=== PATIENT | male | born 1950 | race Caucasian/White ===

== ENCOUNTER 2018-01-10 13:18 | Emergency (ER) | payer OTHER, MEDICARE ==
[~2018-01-10] VITALS: Ht 188 cm; Wt 125.6 kg
[~2018-01-10 13:18] MED LIST: ALBU6.7H INH; LOSA1TAB39 PO; METF10004 PO; OMEP20TA23 PO
[2018-01-10 13:56] LABS: BASOPHILS # (AUTO) 0.1 X10'3 (0-0.2); BASOPHILS % (AUTO) 1.1 % (0-1); EOSINOPHILS # (AUTO) 0.5 X10'3 (0-0.9); EOSINOPHILS % (AUTO) 5.5 % (0-6); HEMATOCRIT 46.1 % (42.0-52.0); HEMOGLOBIN 15.4 g/dl (14.0-17.9); LYMPHOCYTES # (AUTO) 1.4 X10'3 (1.1-4.8); LYMPHOCYTES % (AUTO) 16.9 % (21-51); MEAN CORPUSCULAR HEMOGLOBIN 30.8 PG (27.0-31.0); MEAN CORPUSCULAR HGB CONC 33.4 % (33.0-36.5); MEAN CORPUSCULAR VOLUME 92.2 FL (78-98); MEAN PLATELET VOLUME 7.6 FL (7.4-10.4); MONOCYTES # (AUTO) 0.7 X10'3 (0-0.9); NEUTROPHILS # (AUTO) 5.6 X10'3 (1.8-7.7); NEUTROPHILS % (AUTO) 68.5 % (42-75); PLATELET COUNT 234 X10'3 (140-440); RED CELL DISTRIBUTION WIDTH 13.7 % (11.5-14.5); WHITE BLOOD COUNT 8.2 X10'3 (4.5-11.0)
[2018-01-10 14:05] LABS: PARTIAL THROMBOPLASTIN TIME 30 SECONDS (22-32); PROTHROMBIN TIME 9.9 SECONDS (9.0-12.0)
[2018-01-10 14:12] LABS: ALANINE AMINOTRANSFERASE 31 U/L (12-78); ALBUMIN 3.7 G/DL (3.4-5.0); ALBUMIN/GLOBULIN RATIO 0.9 (1.1-1.5); ALKALINE PHOSPHATASE 69 IU/L (46-116); ANION GAP 9 (8-16); ASPARTATE AMINO TRANSFERASE 16 U/L (10-37); BILIRUBIN,TOTAL 0.4 MG/DL (0.1-1.0); BLOOD UREA NITROGEN 24 MG/DL (7-18); BUN/CREATININE RATIO 21.2 (5.4-32.0); CALCIUM 9.6 MG/DL (8.5-10.1); CHLORIDE 104 MMOL/L (99-107); CREATININE 1.13 MG/DL (0.60-1.10); GLUCOSE 113 MG/DL (70-104); POTASSIUM 3.9 MMOL/L (3.5-5.1); SODIUM 140 MMOL/L (135-145); TOTAL CARBON DIOXIDE 27.2 MMOL/L (24-32); TOTAL PROTEIN 7.7 G/DL (6.4-8.2); eGFR 65 ML/MIN
[2018-01-10 14:20] LABS: MAGNESIUM 1.7 MG/DL (1.5-2.4)
[2018-01-10] MEDS ORDERED: amLODIPine 5mg tablet PO ONE (15:15)
[2018-01-10] MEDS ORDERED: AMLO10TA4 PO (15:15)
[2018-01-10] MEDS ORDERED: nitroGLYCERIN 0.2mg/hour patch TD ONE (15:15)
[2018-01-10] MEDS ORDERED: normal saline 1000ML IV soln IVB ONE (15:30)
[2018-01-10] MEDS ORDERED: iohexol 300mg/ml 100ml inj. ONE (15:31)
[2018-01-10 17:25] VITALS: BP 184/80
[2018-01-11] MEDS ORDERED: MESSAGE TO NURSING PO NR (15:50)
== END 2018-01-10 17:28 | disposition home or self-care (01) ==
LOC: ER 13:19
DX: I16.0 Hypertensive urgency (principal); R91.1 Solitary pulmonary nodule; I11.0 Hypertensive heart disease with heart failure; I50.9 Heart failure, unspecified; J45.909 Unspecified asthma, uncomplicated; E11.9 Type 2 diabetes mellitus without complications; Z87.891 Personal history of nicotine dependence; Z56.0 Unemployment, unspecified; Z79.899 Other long term (current) drug therapy
CPT/HCPCS: 36415; 71045; 71260; 80053; 83735; 83880; 84484; 85025; 85610; 85730; 93005; 99285; J7030; Q9967

== ENCOUNTER 2018-04-12 16:11 | Inpatient (IN) | payer OTHER, MEDICARE ==
[~2018-04-12] VITALS: Ht 188 cm; Wt 133.0 kg
[~2018-04-12 16:11] MED LIST changes: +AMLO10TA4 PO; +METF-438 PO; -METF10004 PO
[2018-04-12] MEDS ORDERED: normal saline 1000ML IV soln IVB ONE (16:20)
[2018-04-12] MEDS ORDERED: albuterol 2.5 MG/3 ML nebule CONTNEB PRN (16:20)
[2018-04-12] MEDS ORDERED: methylPREDNISolone sod succ 125mg/2ml vial IV ONE (16:20)
[2018-04-12] MEDS ORDERED: cloNIDine 0.1 mg tablet PO ONE (16:25)
[2018-04-12 17:29] LABS: BASOPHILS % (AUTO) 0.3 % (0-1); EOSINOPHILS # (AUTO) 0.7 X10'3 (0-0.9); HEMATOCRIT 47.4 % (42.0-52.0); HEMOGLOBIN 15.7 g/dl (14.0-17.9); LYMPHOCYTES % (AUTO) 18.9 % (21-51); MEAN CORPUSCULAR HEMOGLOBIN 30.2 PG (27.0-31.0); MEAN CORPUSCULAR HGB CONC 33.1 % (33.0-36.5); MEAN CORPUSCULAR VOLUME 91.4 FL (78-98); MEAN PLATELET VOLUME 8.4 FL (7.4-10.4); MONOCYTES # (AUTO) 1.1 X10'3 (0-0.9); MONOCYTES % (AUTO) 10.4 % (2-12); NEUTROPHILS # (AUTO) 6.8 X10'3 (1.8-7.7); NEUTROPHILS % (AUTO) 63.4 % (42-75); PLATELET COUNT 234 X10'3 (140-440); RED BLOOD COUNT 5.18 X10'6 (4.70-6.10); RED CELL DISTRIBUTION WIDTH 13.5 % (11.5-14.5); WHITE BLOOD COUNT 10.6 X10'3 (4.5-11.0)
[2018-04-12 17:31] LABS: ALANINE AMINOTRANSFERASE 30 U/L (12-78); ALBUMIN 3.8 G/DL (3.4-5.0); ALBUMIN/GLOBULIN RATIO 0.9 (1.1-1.5); ALKALINE PHOSPHATASE 75 IU/L (46-116); ANION GAP 8 (8-16); ASPARTATE AMINO TRANSFERASE 23 U/L (10-37); BILIRUBIN,TOTAL 0.4 MG/DL (0.1-1.0); BLOOD UREA NITROGEN 26 MG/DL (7-18); BUN/CREATININE RATIO 22.6 (5.4-32.0); CALCIUM 9.1 MG/DL (8.5-10.1); CHLORIDE 100 MMOL/L (99-107); CREATININE 1.15 MG/DL (0.60-1.10); GLUCOSE 110 MG/DL (70-104); POTASSIUM 3.8 MMOL/L (3.5-5.1); SODIUM 138 MMOL/L (135-145); TOTAL CARBON DIOXIDE 30.3 MMOL/L (24-32); TOTAL PROTEIN 7.9 G/DL (6.4-8.2); eGFR 64 ML/MIN
[2018-04-12] MEDS ORDERED: LABE100T5 PO (20:05)
[2018-04-12] MEDS ORDERED: NIFE-2 PO (20:05)
[2018-04-12] MEDS ORDERED: MONT10TA21 PO (20:05)
[2018-04-12] MEDS ORDERED: ALIS1TAB3 PO (20:05)
[2018-04-12] MEDS ORDERED: IPRA4AER IH (20:05)
[2018-04-12] MEDS ORDERED: TIOT18CA3 INH (20:05)
[2018-04-12] MEDS ORDERED: acetaminophen 325mg tablet PO PRN (20:50)
[2018-04-12] MEDS ORDERED: ondansetron/PF 4mg/2ml inj IV PRN (20:50)
[2018-04-12] MEDS ORDERED: magnesium hydroxide 30ml (MOM) UD suspension PO PRN (20:50)
[2018-04-12] MEDS ORDERED: mag hydrox/Alum hydrox/simeth 30ml oral suspension PO PRN (20:50)
[2018-04-12] MEDS ORDERED: labetalol 100mg tablet PO ONE (21:10)
[2018-04-12 21:15] LABS: D-DIMER 0.46 MG/L FEU (0-0.50)
[2018-04-12 22:00] VITALS: BP 184/77
[2018-04-12] MEDS: NIFEdipine XL 30mg tablet PO SCH (22:41)
[2018-04-12 23:00] VITALS: BP 138/63
[2018-04-12] MEDS ORDERED: glucagon, human recombinant 1mg kit SUBCUT PRN (23:15)
[2018-04-12] MEDS ORDERED: MESSAGE TO PHARMACY PO ONE (23:15)
[2018-04-12] MEDS ORDERED: dextrose 50%-water 50ml dispensing syringe IV PRN ×2 (23:15)
[2018-04-12] MEDS ORDERED: dextrose ORAL solution 15 GM/59 ML bottle PO PRN ×2 (23:15)
[2018-04-12 23:39] LABS: HEMOGLOBIN A1C 6.3 % (4.5-6.2)
[2018-04-12] MEDS: albuterol 2.5 MG/3 ML nebule NEB PRN (23:50)
[2018-04-13] MEDS: methylPREDNISolone sod succ/PF 40mg inj. IV SCH ×4 (01:21→19:34)
[2018-04-13 04:00] VITALS: BP 135/60
[2018-04-13 05:57] LABS: BASOPHILS % (AUTO) 0.2 % (0-1); EOSINOPHILS % (AUTO) 0 % (0-6); HEMATOCRIT 44.3 % (42.0-52.0); HEMOGLOBIN 14.9 g/dl (14.0-17.9); LYMPHOCYTES # (AUTO) 0.7 X10'3 (1.1-4.8); MEAN CORPUSCULAR HEMOGLOBIN 30.5 PG (27.0-31.0); MEAN CORPUSCULAR HGB CONC 33.8 % (33.0-36.5); MEAN CORPUSCULAR VOLUME 90.4 FL (78-98); MEAN PLATELET VOLUME 8.4 FL (7.4-10.4); MONOCYTES # (AUTO) 0.2 X10'3 (0-0.9); MONOCYTES % (AUTO) 2.4 % (2-12); NEUTROPHILS # (AUTO) 7.4 X10'3 (1.8-7.7); NEUTROPHILS % (AUTO) 89.4 % (42-75); PLATELET COUNT 237 X10'3 (140-440); RED CELL DISTRIBUTION WIDTH 13.6 % (11.5-14.5); WHITE BLOOD COUNT 8.3 X10'3 (4.5-11.0)
[2018-04-13 06:15] LABS: ALANINE AMINOTRANSFERASE 28 U/L (12-78); ALBUMIN 3.4 G/DL (3.4-5.0); ALBUMIN/GLOBULIN RATIO 0.9 (1.1-1.5); ALKALINE PHOSPHATASE 67 IU/L (46-116); ANION GAP 7 (8-16); ASPARTATE AMINO TRANSFERASE 18 U/L (10-37); BILIRUBIN,TOTAL 0.4 MG/DL (0.1-1.0); BLOOD UREA NITROGEN 25 MG/DL (7-18); BUN/CREATININE RATIO 22.7 (5.4-32.0); CALCIUM 8.7 MG/DL (8.5-10.1); CHLORIDE 101 MMOL/L (99-107); GLUCOSE 191 MG/DL (70-104); POTASSIUM 4.4 MMOL/L (3.5-5.1); SODIUM 138 MMOL/L (135-145); TOTAL CARBON DIOXIDE 30.1 MMOL/L (24-32); TOTAL PROTEIN 7.2 G/DL (6.4-8.2); eGFR 67 ML/MIN
[2018-04-13] MEDS: ipratropium/albuterol 3ml nebule IH SCH ×4 (07:11→19:38)
[2018-04-13 08:00] VITALS: BP 167/82
[2018-04-13] MEDS ORDERED: HYDROchlorothiazide 12.5mg capsule PO SCH (08:00)
[2018-04-13] MEDS ORDERED: non-formulary drug (Tiotropium Bromide (Spiriva) 1 PUFF) INH SCH (08:00)
[2018-04-13] MEDS: insulin Lispro (HumaLOG) vial - multi-dose SQ SCH ×3 (08:01→18:54)
[2018-04-13] MEDS: NIFEdipine XL 30mg tablet PO SCH ×3 (08:05→21:16)
[2018-04-13] MEDS: heparin, porcine 5000 units/ml vial SQ SCH ×2 (08:05→19:35)
[2018-04-13] MEDS: montelukast 10mg tablet PO SCH (08:06)
[2018-04-13] MEDS: labetalol 100mg tablet PO SCH ×2 (08:06→19:33)
[2018-04-13 11:00] VITALS: BP 149/73
[2018-04-13] MEDS: HYDROCHLOROTHIAZIDE PO SCH (11:25)
[2018-04-13] MEDS: ALISKIREN PO SCH (11:25)
[2018-04-13] MEDS ORDERED: DOXYCYCLINE 100MG CAPSULE PO STA (12:27)
[2018-04-13] MEDS: DOXYCYCLINE 100MG CAPSULE PO SCH (14:26)
[2018-04-13 19:00] VITALS: BP 126/46
[2018-04-13 21:10] VITALS: BP 152/64
[2018-04-13 23:00] VITALS: BP 123/46
[2018-04-14] MEDS: methylPREDNISolone sod succ/PF 40mg inj. IV SCH ×4 (03:19→20:08)
[2018-04-14] MEDS: albuterol 2.5 MG/3 ML nebule NEB PRN (03:27)
[2018-04-14 06:00] LABS: BASOPHILS % (AUTO) 0.2 % (0-1); EOSINOPHILS % (AUTO) 0 % (0-6); HEMATOCRIT 44.2 % (42.0-52.0); HEMOGLOBIN 14.5 g/dl (14.0-17.9); LYMPHOCYTES # (AUTO) 0.6 X10'3 (1.1-4.8); LYMPHOCYTES % (AUTO) 5.2 % (21-51); MEAN CORPUSCULAR HEMOGLOBIN 29.9 PG (27.0-31.0); MEAN CORPUSCULAR HGB CONC 32.9 % (33.0-36.5); MONOCYTES # (AUTO) 0.7 X10'3 (0-0.9); MONOCYTES % (AUTO) 5.9 % (2-12); NEUTROPHILS # (AUTO) 10.4 X10'3 (1.8-7.7); NEUTROPHILS % (AUTO) 88.7 % (42-75); PLATELET COUNT 242 X10'3 (140-440); RED BLOOD COUNT 4.86 X10'6 (4.70-6.10); RED CELL DISTRIBUTION WIDTH 13.5 % (11.5-14.5); WHITE BLOOD COUNT 11.7 X10'3 (4.5-11.0)
[2018-04-14 06:28] LABS: ALANINE AMINOTRANSFERASE 23 U/L (12-78); ALBUMIN 3.5 G/DL (3.4-5.0); ALBUMIN/GLOBULIN RATIO 0.9 (1.1-1.5); ALKALINE PHOSPHATASE 69 IU/L (46-116); ANION GAP 10 (8-16); ASPARTATE AMINO TRANSFERASE 22 U/L (10-37); BILIRUBIN,TOTAL 0.3 MG/DL (0.1-1.0); BLOOD UREA NITROGEN 32 MG/DL (7-18); BUN/CREATININE RATIO 26.2 (5.4-32.0); CALCIUM 8.7 MG/DL (8.5-10.1); CHLORIDE 100 MMOL/L (99-107); CREATININE 1.22 MG/DL (0.60-1.10); GLUCOSE 180 MG/DL (70-104); POTASSIUM 4.2 MMOL/L (3.5-5.1); SODIUM 137 MMOL/L (135-145); TOTAL CARBON DIOXIDE 27.3 MMOL/L (24-32); TOTAL PROTEIN 7.4 G/DL (6.4-8.2); eGFR 59 ML/MIN
[2018-04-14 07:00] VITALS: BP 168/74
[2018-04-14] MEDS: ipratropium/albuterol 3ml nebule IH SCH ×4 (08:03→20:25)
[2018-04-14] MEDS: DOXYCYCLINE 100MG CAPSULE PO SCH ×2 (09:02→17:02)
[2018-04-14] MEDS: montelukast 10mg tablet PO SCH (09:03)
[2018-04-14] MEDS: labetalol 100mg tablet PO SCH ×2 (09:03→20:07)
[2018-04-14] MEDS: heparin, porcine 5000 units/ml vial SQ SCH ×2 (09:03→20:07)
[2018-04-14] MEDS: NIFEdipine XL 30mg tablet PO SCH ×3 (09:03→21:19)
[2018-04-14] MEDS: insulin Lispro (HumaLOG) vial - multi-dose SQ SCH ×3 (09:10→18:44)
[2018-04-14] MEDS: ALISKIREN PO SCH (09:17)
[2018-04-14] MEDS: HYDROCHLOROTHIAZIDE PO SCH (09:17)
[2018-04-14 11:00] VITALS: BP 168/77
[2018-04-14 20:00] VITALS: BP 120/72
[2018-04-14] MEDS: lactobacillus rhamnosus 10,000 MMU CELLS/CAPSULE PO SCH (20:08)
[2018-04-14 21:17] VITALS: BP 164/72
[2018-04-15] VITALS: BP 148/75
[2018-04-15] MEDS: methylPREDNISolone sod succ/PF 40mg inj. IV SCH ×3 (01:31→13:25)
[2018-04-15] MEDS: albuterol 2.5 MG/3 ML nebule NEB PRN (03:37)
[2018-04-15 06:23] LABS: BASOPHILS % (AUTO) 0.2 % (0-1); EOSINOPHILS % (AUTO) 0 % (0-6); HEMOGLOBIN 14.8 g/dl (14.0-17.9); LYMPHOCYTES # (AUTO) 0.5 X10'3 (1.1-4.8); LYMPHOCYTES % (AUTO) 5.5 % (21-51); MEAN CORPUSCULAR HGB CONC 32.8 % (33.0-36.5); MEAN CORPUSCULAR VOLUME 91.4 FL (78-98); MEAN PLATELET VOLUME 8.1 FL (7.4-10.4); MONOCYTES # (AUTO) 0.3 X10'3 (0-0.9); MONOCYTES % (AUTO) 3.4 % (2-12); NEUTROPHILS # (AUTO) 8.8 X10'3 (1.8-7.7); NEUTROPHILS % (AUTO) 90.9 % (42-75); PLATELET COUNT 220 X10'3 (140-440); RED BLOOD COUNT 4.92 X10'6 (4.70-6.10); RED CELL DISTRIBUTION WIDTH 13.8 % (11.5-14.5); WHITE BLOOD COUNT 9.7 X10'3 (4.5-11.0)
[2018-04-15 06:41] LABS: ALANINE AMINOTRANSFERASE 35 U/L (12-78); ALBUMIN 3.4 G/DL (3.4-5.0); ALBUMIN/GLOBULIN RATIO 0.9 (1.1-1.5); ALKALINE PHOSPHATASE 68 IU/L (46-116); ANION GAP 8 (8-16); ASPARTATE AMINO TRANSFERASE 26 U/L (10-37); BILIRUBIN,TOTAL 0.3 MG/DL (0.1-1.0); BLOOD UREA NITROGEN 31 MG/DL (7-18); BUN/CREATININE RATIO 25.8 (5.4-32.0); CALCIUM 8.5 MG/DL (8.5-10.1); CHLORIDE 101 MMOL/L (99-107); GLUCOSE 185 MG/DL (70-104); POTASSIUM 4.2 MMOL/L (3.5-5.1); SODIUM 138 MMOL/L (135-145); TOTAL PROTEIN 7.3 G/DL (6.4-8.2); eGFR 61 ML/MIN
[2018-04-15] MEDS: ipratropium/albuterol 3ml nebule IH SCH ×3 (07:04→14:59)
[2018-04-15 07:25] VITALS: BP 163/73
[2018-04-15] MEDS: DOXYCYCLINE 100MG CAPSULE PO SCH (07:34)
[2018-04-15] MEDS: montelukast 10mg tablet PO SCH (07:34)
[2018-04-15] MEDS: ALISKIREN PO SCH (07:35)
[2018-04-15] MEDS: NIFEdipine XL 30mg tablet PO SCH ×2 (07:35→13:25)
[2018-04-15] MEDS: labetalol 100mg tablet PO SCH (07:35)
[2018-04-15] MEDS: HYDROCHLOROTHIAZIDE PO SCH (07:35)
[2018-04-15] MEDS: lactobacillus rhamnosus 10,000 MMU CELLS/CAPSULE PO SCH (07:35)
[2018-04-15] MEDS: heparin, porcine 5000 units/ml vial SQ SCH (07:36)
[2018-04-15] MEDS: insulin Lispro (HumaLOG) vial - multi-dose SQ SCH ×2 (09:11→13:28)
[2018-04-15 12:04] VITALS: BP 111/61
[2018-04-15] MEDS ORDERED: OMEP20TA23 PO (13:30)
[2018-04-15] MEDS ORDERED: DOXY-224 PO (13:30)
[2018-04-15] MEDS ORDERED: PRED10TA23 PO (13:30)
[2018-04-15 14:00] VITALS: BP 156/72
== END 2018-04-15 15:47 | disposition home or self-care (01) | DRG 189 ==
LOC: ER 16:11 → SUR 3N 20:50
PROVIDERS: ADMIT Internal Medicine; ATTEND Internal Medicine
PROC: 5A09357 Assistance with Respiratory Ventilation, Less than 24 Consecutive Hours, Continuous Positive Airway Pressure (ICD-10-PCS; principal; 2018-04-13)
PROC: 5A09357 Assistance with Respiratory Ventilation, Less than 24 Consecutive Hours, Continuous Positive Airway Pressure (ICD-10-PCS; 2018-04-14)
PROC: 5A09357 Assistance with Respiratory Ventilation, Less than 24 Consecutive Hours, Continuous Positive Airway Pressure (ICD-10-PCS; 2018-04-15)
DX: J96.01 Acute respiratory failure with hypoxia (principal); J44.0 Chronic obstructive pulmonary disease with (acute) lower respiratory infection; J44.1 Chronic obstructive pulmonary disease with (acute) exacerbation; E11.9 Type 2 diabetes mellitus without complications; G47.30 Sleep apnea, unspecified; I11.0 Hypertensive heart disease with heart failure; I50.9 Heart failure, unspecified; J20.9 Acute bronchitis, unspecified; F17.200 Nicotine dependence, unspecified, uncomplicated; Z79.899 Other long term (current) drug therapy
CPT/HCPCS: 36415; 71045; 80053; 82948; 83036; 83880; 84484; 85025; 85379; 87070; 93005; 94640; 94660; 94760; 96361; 96374; 99285; G0378; J1644; J2920; J2930

== ENCOUNTER 2018-05-21 10:25 | Day surgery (SDC) | payer OTHER, MEDICARE ==
[~2018-05-21] VITALS: Ht 188 cm; Wt 128.8 kg
[~2018-05-21 10:25] MED LIST changes: -ALBU6.7H INH; +ALIS1TAB3 PO; -AMLO10TA4 PO; +DOXY-224 PO; +IPRA4AER IH; +LABE100T5 PO; -LOSA1TAB39 PO; +MONT10TA21 PO; +NIFE-2 PO; +TIOT18CA3 INH
[2018-05-21] MEDS ORDERED: diphenhydrAMINE 25mg capsule PO PRN (10:40)
[2018-05-21] MEDS ORDERED: sod bicarbonate 150mEq in D5W 1,150 ML IV ONE (10:40)
[2018-05-21 11:00] VITALS: BP 156/73
[2018-05-21 11:33] LABS: BASOPHILS % (AUTO) 0.4 % (0-1); EOSINOPHILS # (AUTO) 0.3 X10'3 (0-0.9); EOSINOPHILS % (AUTO) 3.5 % (0-6); HEMATOCRIT 44.5 % (42.0-52.0); HEMOGLOBIN 14.5 g/dl (14.0-17.9); LYMPHOCYTES # (AUTO) 1.5 X10'3 (1.1-4.8); LYMPHOCYTES % (AUTO) 19.5 % (21-51); MEAN CORPUSCULAR HEMOGLOBIN 29.2 PG (27.0-31.0); MEAN CORPUSCULAR HGB CONC 32.5 % (33.0-36.5); MEAN CORPUSCULAR VOLUME 89.9 FL (78-98); MEAN PLATELET VOLUME 7.6 FL (7.4-10.4); MONOCYTES # (AUTO) 0.6 X10'3 (0-0.9); MONOCYTES % (AUTO) 7.9 % (2-12); NEUTROPHILS # (AUTO) 5.1 X10'3 (1.8-7.7); NEUTROPHILS % (AUTO) 68.7 % (42-75); PLATELET COUNT 260 X10'3 (140-440); RED BLOOD COUNT 4.95 X10'6 (4.70-6.10); RED CELL DISTRIBUTION WIDTH 12.7 % (11.5-14.5); WHITE BLOOD COUNT 7.5 X10'3 (4.5-11.0)
[2018-05-21 11:46] LABS: ALBUMIN 3.8 G/DL (3.4-5.0); ANION GAP 12 (8-16); BLOOD UREA NITROGEN 19 MG/DL (7-18); BUN/CREATININE RATIO 20.7 (5.4-32.0); CALCIUM 8.5 MG/DL (8.5-10.1); CHLORIDE 105 MMOL/L (99-107); CREATININE 0.92 MG/DL (0.60-1.10); GLUCOSE 102 MG/DL (70-104); MAGNESIUM 1.8 MG/DL (1.5-2.4); POTASSIUM 4.2 MMOL/L (3.5-5.1); SODIUM 141 MMOL/L (135-145); TOTAL CARBON DIOXIDE 24.4 MMOL/L (24-32); eGFR 82 ML/MIN
[2018-05-21 11:48] LABS: PROTHROMBIN TIME 10.2 SECONDS (9.0-12.0)
[2018-05-21] MEDS ORDERED: midazolam 2 mg/2 ml injection ONE ×2 (11:55→12:49)
[2018-05-21] MEDS ORDERED: fentaNYL/PF 50MCG/1 ML 2ML syringe ONE (11:56)
[2018-05-21] MEDS ORDERED: LIDOcaine 1% (10mg/ml)w/preservative injection 20ml MDV ONE (11:56)
[2018-05-21] MEDS ORDERED: iohexol 350MG/ML 100ml bottle IV ONE (11:56)
[2018-05-21] MEDS ORDERED: iohexol 350 MG/ML 50ML vial IV ONE (11:56)
[2018-05-21] MEDS ORDERED: C-PAP (12:01)
[2018-05-21] MEDS ORDERED: ASPI-1264 PO (12:01)
[2018-05-21 14:53] VITALS: BP 143/62
[2018-05-21 15:08] VITALS: BP 135/60
[2018-05-21 15:23] VITALS: BP 135/61
[2018-05-21 15:38] VITALS: BP 139/62
[2018-05-21 15:53] VITALS: BP 134/59
== END 2018-05-21 16:30 | disposition home or self-care (01) ==
LOC: SSTAY O 10:25
PROVIDERS: ATTEND Internal Medicine Cardiovascular Disease
DX: I25.10 Atherosclerotic heart disease of native coronary artery without angina pectoris (principal); I10 Essential (primary) hypertension; E11.9 Type 2 diabetes mellitus without complications; J45.909 Unspecified asthma, uncomplicated; G47.30 Sleep apnea, unspecified; Z82.49 Family history of ischemic heart disease and other diseases of the circulatory system; Z72.89 Other problems related to lifestyle; Z79.82 Long term (current) use of aspirin; Z79.899 Other long term (current) drug therapy; Z87.891 Personal history of nicotine dependence; Z79.84 Long term (current) use of oral hypoglycemic drugs
CPT/HCPCS: 36415; 80048; 83735; 85025; 85610; 93005; 93458; 99152; 99153; A6257; J1644; J2001; J2250; J3010; Q0163; Q9967; A4620; C1760; C1769; C1894

== ENCOUNTER 2018-06-02 17:30 | Emergency (ER) | payer OTHER, MEDICARE ==
[~2018-06-02] VITALS: Ht 188 cm; Wt 123.8 kg
[~2018-06-02 17:30] MED LIST changes: +ASPI-1264 PO; +C-PAP; -DOXY-224 PO
[2018-06-02 18:02] LABS: BASOPHILS # (AUTO) 0.1 X10'3 (0-0.2); BASOPHILS % (AUTO) 0.8 % (0-1); EOSINOPHILS % (AUTO) 10.4 % (0-6); HEMATOCRIT 40.1 % (42.0-52.0); HEMOGLOBIN 13.6 g/dl (14.0-17.9); LYMPHOCYTES # (AUTO) 1.3 X10'3 (1.1-4.8); LYMPHOCYTES % (AUTO) 13.6 % (21-51); MEAN CORPUSCULAR HGB CONC 33.8 % (33.0-36.5); MEAN CORPUSCULAR VOLUME 88.7 FL (78-98); MEAN PLATELET VOLUME 7.7 FL (7.4-10.4); NEUTROPHILS # (AUTO) 6.3 X10'3 (1.8-7.7); NEUTROPHILS % (AUTO) 65.2 % (42-75); PLATELET COUNT 274 X10'3 (140-440); RED BLOOD COUNT 4.52 X10'6 (4.70-6.10); RED CELL DISTRIBUTION WIDTH 13.8 % (11.5-14.5); WHITE BLOOD COUNT 9.6 X10'3 (4.5-11.0)
[2018-06-02 18:27] LABS: ALANINE AMINOTRANSFERASE 26 U/L (12-78); ALBUMIN 3.6 G/DL (3.4-5.0); ALBUMIN/GLOBULIN RATIO 0.8 (1.1-1.5); ALKALINE PHOSPHATASE 72 IU/L (46-116); ANION GAP 12 (8-16); ASPARTATE AMINO TRANSFERASE 18 U/L (10-37); BILIRUBIN,TOTAL 0.3 MG/DL (0.1-1.0); BLOOD UREA NITROGEN 33 MG/DL (7-18); BUN/CREATININE RATIO 21.3 (5.4-32.0); CALCIUM 8.9 MG/DL (8.5-10.1); CHLORIDE 101 MMOL/L (99-107); CREATININE 1.55 MG/DL (0.60-1.10); GLUCOSE 146 MG/DL (70-104); POTASSIUM 3.4 MMOL/L (3.5-5.1); SODIUM 142 MMOL/L (135-145); TOTAL CARBON DIOXIDE 28.9 MMOL/L (24-32); eGFR 45 ML/MIN
[2018-06-02 18:30] LABS: D-DIMER 0.73 MG/L FEU (0-0.50); PARTIAL THROMBOPLASTIN TIME 34 SECONDS (22-32); PROTHROMBIN TIME 10.2 SECONDS (9.0-12.0)
--- NOTE | 2018-06-02 18:46 | NUR ---
LAB HERE TO DRAW SECOND SET OF BLOOD CULTURES. REVIEWED LABS, + D DIMER, SPOX 89% SO VITALS WILL BE UPDATED PER TRIAGE.
[2018-06-02] MEDS ORDERED: ipratropium/albuterol 3ml nebule NEB ONE (19:35)
[2018-06-02] MEDS ORDERED: predniSONE 20 mg tablet PO ONE (19:35)
[2018-06-02] MEDS ORDERED: albuterol 2.5 MG/3 ML nebule NEB ONE ×2 (19:35→20:45)
[2018-06-02 21:44] VITALS: BP 129/91
[2018-06-02] MEDS ORDERED: ALBU18HF2 INH (22:04)
[2018-06-02] MEDS ORDERED: AZIT250T PO (22:04)
[2018-06-02] MEDS ORDERED: PRED20TA PO (22:04)
== END 2018-06-02 22:29 | disposition home or self-care (01) ==
LOC: ER 17:31
DX: J44.1 Chronic obstructive pulmonary disease with (acute) exacerbation (principal); I11.0 Hypertensive heart disease with heart failure; I50.9 Heart failure, unspecified; E11.9 Type 2 diabetes mellitus without complications; Z79.82 Long term (current) use of aspirin; Z79.84 Long term (current) use of oral hypoglycemic drugs; Z79.899 Other long term (current) drug therapy; Z87.891 Personal history of nicotine dependence; Z56.0 Unemployment, unspecified
CPT/HCPCS: 36415; 71045; 80053; 83605; 84145; 84484; 85025; 85379; 85610; 85730; 87040; 93005; 94640; 94760; 99284; J7512

== ENCOUNTER 2018-06-24 13:42 | Emergency (ER) | payer OTHER, MEDICARE ==
[~2018-06-24] VITALS: Ht 188 cm; Wt 125.5 kg
[~2018-06-24 13:42] MED LIST changes: +ALBU18HF2 INH; +PRED20TA PO
[2018-06-24 15:57] LABS: BASOPHILS # (AUTO) 0.1 X10'3 (0-0.2); BASOPHILS % (AUTO) 1.3 % (0-1); EOSINOPHILS % (AUTO) 0.3 % (0-6); HEMATOCRIT 34.1 % (42.0-52.0); LYMPHOCYTES # (AUTO) 1.5 X10'3 (1.1-4.8); MEAN CORPUSCULAR HGB CONC 32.3 g/dL (33.0-36.5); MEAN CORPUSCULAR VOLUME 89.8 FL (78-98); MEAN PLATELET VOLUME 8.4 FL (7.4-10.4); MONOCYTES # (AUTO) 1.7 X10'3 (0-0.9); MONOCYTES % (AUTO) 15.2 % (2-12); NEUTROPHILS % (AUTO) 70.2 % (42-75); PLATELET COUNT 343 X10'3 (140-440); RED CELL DISTRIBUTION WIDTH 13.5 % (11.5-14.5); WHITE BLOOD COUNT 11.3 X10'3 (4.5-11.0)
[2018-06-24 15:58] LABS: ALANINE AMINOTRANSFERASE 36 U/L (12-78); ALBUMIN 2.7 G/DL (3.4-5.0); ALBUMIN/GLOBULIN RATIO 0.6 (1.1-1.5); ALKALINE PHOSPHATASE 63 IU/L (46-116); ANION GAP 11 (8-16); ASPARTATE AMINO TRANSFERASE 19 U/L (10-37); BILIRUBIN,TOTAL 0.8 MG/DL (0.1-1.0); BLOOD UREA NITROGEN 33 MG/DL (7-18); BUN/CREATININE RATIO 18.3 (5.4-32.0); CALCIUM 8.7 MG/DL (8.5-10.1); CHLORIDE 101 MMOL/L (99-107); GLUCOSE 119 MG/DL (70-104); POTASSIUM 4.3 MMOL/L (3.5-5.1); SODIUM 139 MMOL/L (135-145); TOTAL CARBON DIOXIDE 27.4 MMOL/L (24-32); TOTAL PROTEIN 7.3 G/DL (6.4-8.2); eGFR 38 ML/MIN
[2018-06-24] MEDS ORDERED: albuterol 2.5 MG/3 ML nebule CONTNEB PRN (20:15)
[2018-06-24] MEDS ORDERED: methylPREDNISolone sod succ 125mg/2ml vial IV ONE (20:15)
[2018-06-24] MEDS ORDERED: ipratropium 0.5 MG/2.5ML nebule IH ONE (20:15)
[2018-06-24] MEDS ORDERED: azithromycin 250mg tablet PO ONE (20:15)
[2018-06-24 20:37] LABS: TROPONIN I < 0.04 NG/ML (0.0-0.05)
[2018-06-24] MEDS ORDERED: CefTRIAXone 2gm/D5W 50ml 50 ML IV ONE (21:40)
[2018-06-24] MEDS ORDERED: AZIT-63 PO (21:41)
[2018-06-24] MEDS ORDERED: PRED20TA PO (21:41)
[2018-06-24 21:52] VITALS: BP 145/73
== END 2018-06-24 22:19 | disposition home or self-care (01) ==
LOC: ER 13:43
DX: J18.9 Pneumonia, unspecified organism (principal); I11.0 Hypertensive heart disease with heart failure; I50.9 Heart failure, unspecified; J44.9 Chronic obstructive pulmonary disease, unspecified; E11.9 Type 2 diabetes mellitus without complications; F17.200 Nicotine dependence, unspecified, uncomplicated; Z79.82 Long term (current) use of aspirin; Z79.84 Long term (current) use of oral hypoglycemic drugs; Z79.899 Other long term (current) drug therapy; Z56.0 Unemployment, unspecified
CPT/HCPCS: 36415; 71046; 80053; 83605; 83880; 84145; 84484; 85025; 87040; 93005; 94644; 94760; 96365; 96375; 99285; J0696; J2930; 94640

== ENCOUNTER 2020-07-09 17:08 | Emergency (ER) | payer OTHER, MEDICARE ==
[~2020-07-09] VITALS: Ht 188 cm; Wt 125.0 kg
[~2020-07-09 17:08] MED LIST changes: +AZIT-63 PO; -NIFE-2 PO; +NIFE-58 PO
[2020-07-09] MEDS ORDERED: ondansetron/PF 4mg/2ml inj IV ONE ×2 (17:35→19:20)
[2020-07-09] MEDS ORDERED: fentaNYL/PF 50MCG/1 ML 2ML syringe IV ONE (17:35)
[2020-07-09] MEDS ORDERED: amiodarone 150mg/dext, iso-os 100 ML IV ONE (17:35)
[2020-07-09] MEDS ORDERED: heparin 10,000 units/1 ML INJ IV ONE (17:35)
[2020-07-09] MEDS ORDERED: etomidate 2mg/ml inj. IV ONE (17:35)
[2020-07-09] MEDS ORDERED: SOTA80TA PO (18:19)
[2020-07-09] MEDS ORDERED: APIX5TAB3 PO (18:19)
[2020-07-09 18:20] LABS: BASOPHILS # (AUTO) 0.2 X10'3 (0-0.2); BASOPHILS % (AUTO) 1.1 % (0-1); EOSINOPHILS # (AUTO) 0.3 X10'3 (0-0.9); EOSINOPHILS % (AUTO) 1.8 % (0-6); HEMATOCRIT 43.9 % (42.0-52.0); HEMOGLOBIN 14.6 g/dl (14.0-17.9); LYMPHOCYTES # (AUTO) 3.4 X10'3 (1.1-4.8); LYMPHOCYTES % (AUTO) 22.2 % (21-51); MEAN CORPUSCULAR HEMOGLOBIN 29.5 PG (27.0-31.0); MEAN CORPUSCULAR HGB CONC 33.3 g/dL (33.0-36.5); MEAN CORPUSCULAR VOLUME 88.8 FL (78-98); MEAN PLATELET VOLUME 8.5 FL (7.4-10.4); MONOCYTES # (AUTO) 1.3 X10'3 (0-0.9); MONOCYTES % (AUTO) 8.7 % (2-12); NEUTROPHILS % (AUTO) 66.2 % (42-75); PLATELET COUNT 308 X10'3 (140-440); RED BLOOD COUNT 4.94 X10'6 (4.70-6.10); RED CELL DISTRIBUTION WIDTH 14.1 % (11.5-14.5); WHITE BLOOD COUNT 15.1 X10'3 (4.5-11.0)
[2020-07-09 18:26] LABS: PARTIAL THROMBOPLASTIN TIME 27 SECONDS (22-32)
[2020-07-09 18:28] LABS: ALANINE AMINOTRANSFERASE 28 U/L (12-78); ALBUMIN 3.3 G/DL (3.4-5.0); ALBUMIN/GLOBULIN RATIO 0.8 (1.1-1.5); ANION GAP 7 (8-16); ASPARTATE AMINO TRANSFERASE 11 U/L (10-37); BILIRUBIN,TOTAL 0.4 MG/DL (0.1-1.0); BLOOD UREA NITROGEN 36 MG/DL (7-18); BUN/CREATININE RATIO 23.7 (5.4-32.0); CALCIUM 9.4 MG/DL (8.5-10.1); CHLORIDE 105 MMOL/L (99-107); CREATININE 1.52 MG/DL (0.60-1.10); GLUCOSE 157 MG/DL (70-104); POTASSIUM 3.8 MMOL/L (3.5-5.1); SODIUM 141 MMOL/L (135-145); TOTAL CARBON DIOXIDE 29.4 MMOL/L (24-32); TOTAL PROTEIN 7.5 G/DL (6.4-8.2); eGFR 46 ML/MIN
[2020-07-09 18:37] LABS: MAGNESIUM 1.5 MG/DL (1.5-2.4)
[2020-07-09 18:58] LABS: D-DIMER 0.57 MG/L FEU (0-0.50)
[2020-07-09 19:10] LABS: ALKALINE PHOSPHATASE 66 IU/L (46-116)
[2020-07-09 19:41] VITALS: BP 137/75
== END 2020-07-09 19:42 | disposition home or self-care (01) ==
LOC: ER 17:09
DX: I48.91 Unspecified atrial fibrillation (principal); N18.9 Chronic kidney disease, unspecified; E11.22 Type 2 diabetes mellitus with diabetic chronic kidney disease; I13.0 Hypertensive heart and chronic kidney disease with heart failure and stage 1 through stage 4 chronic kidney disease, or unspecified chronic kidney disease; I50.9 Heart failure, unspecified; J44.9 Chronic obstructive pulmonary disease, unspecified; Z87.01 Personal history of pneumonia (recurrent); Z72.89 Other problems related to lifestyle; Z56.0 Unemployment, unspecified; Z79.82 Long term (current) use of aspirin; Z79.899 Other long term (current) drug therapy
CPT/HCPCS: 36415; 71045; 80053; 83735; 83880; 84443; 84484; 85025; 85379; 85610; 85730; 92960; 93005; 94760; 94799; 96374; 96375; 99285; J1644; J2405; J3010; 96365

== ENCOUNTER 2020-08-03 09:34 | Day surgery (SDC) | payer OTHER, MEDICARE ==
[~2020-08-03] VITALS: Ht 188 cm; Wt 123.9 kg
[~2020-08-03 09:34] MED LIST changes: +APIX5TAB3 PO; +SOTA80TA PO
[2020-08-03] MEDS ORDERED: MIDAZolam 1mg/ml 10ml vial IV ONE (10:10)
[2020-08-03] MEDS ORDERED: normal saline 1000ml 1,000 ML IV SCH (10:10)
[2020-08-03] MEDS ORDERED: fentaNYL/PF 50MCG/1 ML 2ML syringe IV ONE (10:10)
[2020-08-03] MEDS ORDERED: HYDR25TA4 PO (10:22)
[2020-08-03] MEDS ORDERED: FLUT12AE9 PO (10:22)
[2020-08-03] MEDS ORDERED: AMIO200T61 PO (10:22)
[2020-08-03] MEDS ORDERED: APIX5TAB3 PO (10:22)
== END 2020-08-03 10:55 | disposition home or self-care (01) ==
LOC: SSTAY O 09:34
PROVIDERS: ATTEND Internal Medicine Cardiovascular Disease
DX: I48.0 Paroxysmal atrial fibrillation (principal); Z53.8 Procedure and treatment not carried out for other reasons; I10 Essential (primary) hypertension; I25.10 Atherosclerotic heart disease of native coronary artery without angina pectoris; E78.5 Hyperlipidemia, unspecified; E11.9 Type 2 diabetes mellitus without complications; J45.909 Unspecified asthma, uncomplicated; G47.30 Sleep apnea, unspecified; Z98.890 Other specified postprocedural states; Z79.01 Long term (current) use of anticoagulants; Z79.899 Other long term (current) drug therapy; Z72.89 Other problems related to lifestyle; Z87.891 Personal history of nicotine dependence; Z88.8 Allergy status to other drugs, medicaments and biological substances
CPT/HCPCS: 93005

== ENCOUNTER 2022-05-04 12:35 | Emergency (ER) | payer MEDICARE, OTHER ==
[~2022-05-04] VITALS: Ht 185.4 cm; Wt 122.7 kg
[~2022-05-04 12:35] MED LIST changes: -ALBU18HF2 INH; +AMIO200T61 PO; -ASPI-1264 PO; -AZIT-63 PO; +FLUT12AE9 PO; +HYDR25TA4 PO; -LABE100T5 PO; +LABE100T8 PO; -OMEP20TA23 PO; -PRED20TA PO; -SOTA80TA PO; -TIOT18CA3 INH
[2022-05-04 12:39] VITALS: BP 172/65
[2022-05-04] MEDS ORDERED: DOXY-1 PO (14:13)
[2022-05-04] MEDS ORDERED: DOXYCYCLINE 100MG CAPSULE PO STA (14:13)
--- NOTE | 2022-05-04 14:35 | NUR ---
FLU POS. PHONE CALL TO UPDATE RESULTS
== END 2022-05-04 14:56 | disposition home or self-care (01) ==
LOC: ER 12:36
DX: J20.9 Acute bronchitis, unspecified (principal); Z20.822 Contact with and (suspected) exposure to COVID-19; R05.9 Cough, unspecified; R09.89 Other specified symptoms and signs involving the circulatory and respiratory systems; R06.02 Shortness of breath; R50.9 Fever, unspecified; J44.9 Chronic obstructive pulmonary disease, unspecified; I11.0 Hypertensive heart disease with heart failure; I50.9 Heart failure, unspecified; E11.9 Type 2 diabetes mellitus without complications; Z87.01 Personal history of pneumonia (recurrent); Z72.89 Other problems related to lifestyle; Z56.0 Unemployment, unspecified; Z88.8 Allergy status to other drugs, medicaments and biological substances; Z79.899 Other long term (current) drug therapy
CPT/HCPCS: 71045; 87502; 87503; 87635; 99284; C9803

== ENCOUNTER 2023-03-13 15:03 | Inpatient (IN) | payer OTHER, MEDICARE ==
[~2023-03-13] VITALS: Ht 188 cm; Wt 131.7 kg
[~2023-03-13 15:03] MED LIST changes: +AMI200T PO; -AMIO200T61 PO; +MONT-47 PO; -MONT10TA21 PO
[2023-03-13] MEDS ORDERED: ipratropium/albuterol 3ml nebule NEB ONE ×2 (15:25)
[2023-03-13 16:37] LABS: BASOPHILS # (AUTO) 0.1 X10'3 (0-0.2); BASOPHILS % (AUTO) 0.6 % (0-1); EOSINOPHILS # (AUTO) 0.2 X10'3 (0-0.9); EOSINOPHILS % (AUTO) 1.8 % (0-6); HEMATOCRIT 37.6 % (42.0-52.0); HEMOGLOBIN 12.1 g/dl (14.0-17.9); LYMPHOCYTES # (AUTO) 1.2 X10'3 (1.1-4.8); LYMPHOCYTES % (AUTO) 10.8 % (21-51); MEAN CORPUSCULAR HEMOGLOBIN 28.1 PG (27.0-31.0); MEAN CORPUSCULAR HGB CONC 32.2 g/dL (33.0-36.5); MEAN CORPUSCULAR VOLUME 87.3 FL (78-98); MEAN PLATELET VOLUME 7.5 FL (7.4-10.4); MONOCYTES # (AUTO) 1.2 X10'3 (0-0.9); MONOCYTES % (AUTO) 10.7 % (2-12); NEUTROPHILS # (AUTO) 8.7 X10'3 (1.8-7.7); NEUTROPHILS % (AUTO) 76.1 % (42-75); PLATELET COUNT 349 X10'3 (140-440); RED BLOOD COUNT 4.31 X10'6 (4.70-6.10); RED CELL DISTRIBUTION WIDTH 15.2 % (11.5-14.5); WHITE BLOOD COUNT 11.5 X10'3 (4.5-11.0)
[2023-03-13 16:45] VITALS: PULSE 75; RESP 17; O2SAT 92
[2023-03-13 16:50] VITALS: PULSE 78; RESP 17; O2SAT 92
[2023-03-13 16:51] LABS: ANION GAP 6 (8-16); BLOOD UREA NITROGEN 39 MG/DL (7-18); BUN/CREATININE RATIO 22.5 (10.0-20.0); CHLORIDE 102 MMOL/L (99-107); CREATININE 1.73 MG/DL (0.60-1.10); GLUCOSE 132 MG/DL (70-104); POTASSIUM 4.3 MMOL/L (3.5-5.1); SODIUM 138 MMOL/L (135-145); TOTAL CARBON DIOXIDE 30.3 MMOL/L (24-32); eCRCL 46 ML/MIN
[2023-03-13 16:52] LABS: ALANINE AMINOTRANSFERASE 14 U/L (12-78); ALBUMIN 2.8 G/DL (3.4-5.0); ALBUMIN/GLOBULIN RATIO 0.7 (1.1-1.5); ALKALINE PHOSPHATASE 65 IU/L (46-116); ASPARTATE AMINO TRANSFERASE 14 U/L (10-37); BILIRUBIN,TOTAL 0.5 MG/DL (0.1-1.0); CALCIUM 8.9 MG/DL (8.5-10.1); eGFR 39 ML/MIN
[2023-03-13 16:57] LABS: PRO BRAIN NATRIURETIC PEPTIDE 837 PG/ML (0-125)
[2023-03-13 17:00] LABS: MAGNESIUM 1.8 MG/DL (1.5-2.4); PRO BRAIN NATRIURETIC PEPTIDE 822 PG/ML (0-125)
[2023-03-13] MEDS ORDERED: normal saline 1000ml 1,000 ML IV ONE (20:30)
[2023-03-13] MEDS ORDERED: morphine 2 MG/ML inj. syringe IV STA (22:17)
[2023-03-13] MEDS ORDERED: ondansetron/PF 4mg/2ml inj IV ONE (22:20)
[2023-03-13] MEDS ORDERED: acetaminophen 325mg tablet PO ONE (23:45)
[2023-03-14] VITALS (24 sets, daily range): BP systolic 100–130; BP diastolic 45–59; PULSE 71–90; RESP 16–29; TEMP 97.8–99; O2SAT 91–97
[2023-03-14] MEDS ORDERED: magnesium 4gm in 100ml NS 100 ML IV PRN (00:05)
[2023-03-14] MEDS ORDERED: LABE100T8 PO ×2 (00:05)
[2023-03-14] MEDS ORDERED: AMI200T PO (00:05)
[2023-03-14] MEDS ORDERED: potassium Cl 20 mEq SR tablet PO PRN ×2 (00:05)
[2023-03-14] MEDS ORDERED: potassium Cl 40MEQ/1/2NS 520ml 520 ML IV PRN (00:05)
[2023-03-14] MEDS ORDERED: magnesium 2GM in 50ml NS 50 ML IV PRN (00:05)
[2023-03-14] MEDS ORDERED: magnesium Cl slow-release 64mg tablet PO PRN (00:05)
[2023-03-14] MEDS ORDERED: mag hydrox/Alum hydrox/simeth 30ml oral suspension PO PRN (00:05)
[2023-03-14] MEDS ORDERED: PERFLUTREN PROTEIN-A MICROSPHR (Optison) 0.22 MG/ML 3ML VIAL IV ONE (00:05)
[2023-03-14] MEDS ORDERED: magnesium hydroxide 30ml (MOM) UD suspension PO PRN (00:05)
[2023-03-14] MEDS ORDERED: LEVO50CA4 PO (00:05)
[2023-03-14] MEDS ORDERED: NIFE-72 PO (00:05)
[2023-03-14] MEDS ORDERED: ondansetron/PF 4mg/2ml inj IV PRN (00:05)
[2023-03-14] MEDS: albuterol 2.5 MG/3 ML nebule NEB PRN (00:53)
[2023-03-14 02:52] LABS: MAGNESIUM 1.9 MG/DL (1.5-2.4); POTASSIUM 4.2 MMOL/L (3.5-5.1)
--- NOTE | 2023-03-14 04:55 | NUR ---
I have reviewed and agree with all interventions, assessments performed and documented by ELINA Mckenna
[2023-03-14] MEDS: levoTHYROXINE 25mcg tablet PO SCH (07:00)
[2023-03-14] MEDS ORDERED: nitroGLYCERIN 0.4mg SUBLingual tab SL PRN (07:50)
[2023-03-14] MEDS ORDERED: regadenoson 0.4mg/5ml syringe IV PRN (07:50)
[2023-03-14] MEDS ORDERED: aminophylline 250mg/10ml inj. IV PRN (07:50)
[2023-03-14] MEDS ORDERED: metoprolol tartrate 1mg/ml inj IV PRN (07:50)
[2023-03-14] MEDS: ALISKIREN 300 MG PO SCH (08:00)
[2023-03-14] MEDS ORDERED: amiodarone 200mg tablet PO SCH (08:00)
[2023-03-14] MEDS ORDERED: apixaban 5mg tablet PO SCH (08:00)
[2023-03-14] MEDS: NIFEdipine XL 30mg tablet PO SCH ×2 (08:31→20:27)
[2023-03-14] MEDS: montelukast 10mg tablet PO SCH (08:31)
[2023-03-14] MEDS: amiodarone 200mg tablet PO SCH ×2 (08:32→20:00)
[2023-03-14] MEDS: docusate sod 100mg capsule PO SCH ×2 (08:33→20:00)
[2023-03-14] MEDS: K and/or MAG REPLACEMENT MC SCH ×2 (08:36→20:00)
[2023-03-14] MEDS: budesonide 0.5mg/2ml UD nebule IH SCH ×2 (08:38→19:36)
[2023-03-14] MEDS: ipratropium/albuterol 3ml nebule NEB PRN ×3 (08:38→19:36)
[2023-03-14] MEDS: labetalol 100mg tablet PO SCH ×2 (08:57→20:27)
--- NOTE | 2023-03-14 10:45 | NUR ---
PT TO STRESS TEST IN [facility] WITH RN, PT IS ABLE TO TRANSFER SELF WITHOUT ASSIST FROM BED TO WHEELCHAIR.
--- NOTE | 2023-03-14 10:56 | NUR ---
REPORT GIVEN TO INGRID MENCHACA
[2023-03-14] MEDS ORDERED: LORazepam 2 mg/ml vial ONE (11:19)
[2023-03-14 12:00] LABS: HEMOGLOBIN A1C 6.1 % (4.5-6.2)
--- NOTE | 2023-03-14 13:11 | NUR ---
Message: Souleymane pickard Re:[id number] Tarun Cruz, Patient is requesting tylenol for pain for pain but only has it for fever would you like me to add it for mild pain.
[2023-03-14] MEDS: acetaminophen 325mg tablet PO PRN (15:06)
[2023-03-14] MEDS: normal saline 1000ml 1,000 ML IV SCH (15:07)
[2023-03-14 16:48] LABS: CHOL/HDL RATIO 3.8 (0.00-4.99); CHOLESTEROL 150 MG/DL (0-200); HDL CHOLESTEROL 40 MG/DL (35-60); LDL CHOLESTEROL 86 MG/DL (50-100); THYROID STIMULATING HORMONE 1.65 ulU/ml (0.34-4.50); TRIGLYCERIDES 111 MG/DL (20-135)
[2023-03-15] VITALS (20 sets, daily range): BP systolic 96–133; BP diastolic 49–58; PULSE 64–88; RESP 15–34; TEMP 97.9–98.5; O2SAT 90–96
[2023-03-15] MEDS: acetaminophen 325mg tablet PO PRN ×3 (06:41→20:59)
[2023-03-15] MEDS: budesonide 0.5mg/2ml UD nebule IH SCH ×2 (06:51→19:53)
[2023-03-15] MEDS: albuterol 2.5 MG/3 ML nebule NEB PRN ×2 (06:51→17:34)
--- NOTE | 2023-03-15 07:00 | NUR ---
This RN has reviewed and agrees w/the WEIGHT CHECKER's physical assessment of this patient.
--- NOTE | 2023-03-15 07:12 | NUR ---
Patient in room PCU 3024. I have received report from Rosetta ANTOINE and had the opportunity to ask questions and assume patient care.
[2023-03-15 07:59] LABS: BASOPHILS # (AUTO) 0.1 X10'3 (0-0.2); BASOPHILS % (AUTO) 0.9 % (0-1); EOSINOPHILS # (AUTO) 0.1 X10'3 (0-0.9); EOSINOPHILS % (AUTO) 0.5 % (0-6); HEMATOCRIT 34.6 % (42.0-52.0); HEMOGLOBIN 11.2 g/dl (14.0-17.9); LYMPHOCYTES # (AUTO) 1.2 X10'3 (1.1-4.8); LYMPHOCYTES % (AUTO) 10.9 % (21-51); MEAN CORPUSCULAR HEMOGLOBIN 28.3 PG (27.0-31.0); MEAN CORPUSCULAR HGB CONC 32.3 g/dL (33.0-36.5); MEAN CORPUSCULAR VOLUME 87.7 FL (78-98); MEAN PLATELET VOLUME 7.7 FL (7.4-10.4); MONOCYTES # (AUTO) 1.4 X10'3 (0-0.9); MONOCYTES % (AUTO) 12.2 % (2-12); NEUTROPHILS # (AUTO) 8.6 X10'3 (1.8-7.7); NEUTROPHILS % (AUTO) 75.5 % (42-75); PLATELET COUNT 346 X10'3 (140-440); RED BLOOD COUNT 3.95 X10'6 (4.70-6.10); RED CELL DISTRIBUTION WIDTH 15.2 % (11.5-14.5); WHITE BLOOD COUNT 11.4 X10'3 (4.5-11.0)
[2023-03-15] MEDS: K and/or MAG REPLACEMENT MC SCH ×2 (08:00→19:14)
[2023-03-15] MEDS: ALISKIREN 300 MG PO SCH (08:00)
[2023-03-15] MEDS: levoTHYROXINE 25mcg tablet PO SCH (08:00)
[2023-03-15] MEDS: docusate sod 100mg capsule PO SCH ×2 (08:00→19:12)
[2023-03-15 08:01] LABS: ALANINE AMINOTRANSFERASE 8 U/L (12-78); ALBUMIN 2.4 G/DL (3.4-5.0); ALBUMIN/GLOBULIN RATIO 0.5 (1.1-1.5); ALKALINE PHOSPHATASE 61 IU/L (46-116); ANION GAP 8 (8-16); ASPARTATE AMINO TRANSFERASE 13 U/L (10-37); BILIRUBIN,TOTAL 0.4 MG/DL (0.1-1.0); BLOOD UREA NITROGEN 53 MG/DL (7-18); BUN/CREATININE RATIO 24.1 (10.0-20.0); CALCIUM 8.6 MG/DL (8.5-10.1); CHLORIDE 103 MMOL/L (99-107); GLUCOSE 144 MG/DL (70-104); MAGNESIUM 2.1 MG/DL (1.5-2.4); PHOSPHORUS 4.4 MG/DL (2.3-4.5); POTASSIUM 4.2 MMOL/L (3.5-5.1); SODIUM 138 MMOL/L (135-145); TOTAL CARBON DIOXIDE 27.3 MMOL/L (24-32); TOTAL PROTEIN 6.9 G/DL (6.4-8.2); eCRCL 36 ML/MIN; eGFR 30 ML/MIN
[2023-03-15] MEDS: amiodarone 200mg tablet PO SCH ×2 (08:01→19:13)
[2023-03-15] MEDS: montelukast 10mg tablet PO SCH (08:01)
[2023-03-15] MEDS: NIFEdipine XL 30mg tablet PO SCH ×2 (08:01→19:42)
[2023-03-15] MEDS: labetalol 100mg tablet PO SCH ×2 (08:02→20:21)
[2023-03-15] MEDS: normal saline 1000ml 1,000 ML IV SCH ×2 (10:05→13:17)
[2023-03-15] MEDS: ipratropium/albuterol 3ml nebule NEB PRN ×2 (10:56→19:52)
[2023-03-15] MEDS ORDERED: ondansetron 4mg rapidly disintigrating tab PO PRN (13:47)
--- NOTE | 2023-03-15 14:46 | NUR ---
PAGER ID: [phone] MESSAGE: Souleymane tele re: [id number] Tarun, Patient was having BM and hemorrhoid bust and patient was concerned, site assessed not bleeding actively just oozing blood. Thanks
--- NOTE | 2023-03-15 17:00 | NUR ---
Student documentation: I have reviewed all interventions, assessments performed and documented by Samir CARRERA. Student Medication Administration: For this medication-pass time frame, all medication were reviewed, dispensed, administered and documented per hospital policy by Samir CARRERA.
[2023-03-15] MEDS ORDERED: dextrose 50%-water 50ml dispensing syringe IV PRN ×2 (23:35)
[2023-03-15] MEDS ORDERED: DEXTROSE 15 GM of carb/4 tabs (each vial/BOTTLE has 4 tablets) PO PRN ×2 (23:35)
[2023-03-15] MEDS ORDERED: glucagon, human recombinant 1mg kit SUBCUT PRN (23:35)
[2023-03-15] MEDS ORDERED: MESSAGE TO PHARMACY PO ONE (23:35)
[2023-03-15] MEDS ORDERED: insulin Lispro (HumaLOG) vial - multi-dose SQ SCH (23:35)
[2023-03-16] VITALS (19 sets, daily range): BP systolic 120–154; BP diastolic 53–64; PULSE 65–94; RESP 12–24; TEMP 97.9–98.4; O2SAT 89–99
--- NOTE | 2023-03-16 06:34 | NUR ---
Received hand off report from NIKOLAI Owusu
--- NOTE | 2023-03-16 06:40 | NUR ---
Patient in room PCU 3024. I have received report from Umer MENCHACA and had the opportunity to ask questions and assume patient care.
[2023-03-16 07:16] LABS: BASOPHILS # (AUTO) 0.1 X10'3 (0-0.2); BASOPHILS % (AUTO) 0.8 % (0-1); EOSINOPHILS # (AUTO) 0.1 X10'3 (0-0.9); EOSINOPHILS % (AUTO) 0.8 % (0-6); HEMOGLOBIN 10.5 g/dl (14.0-17.9); LYMPHOCYTES # (AUTO) 0.8 X10'3 (1.1-4.8); LYMPHOCYTES % (AUTO) 7.4 % (21-51); MEAN CORPUSCULAR HEMOGLOBIN 27.7 PG (27.0-31.0); MEAN CORPUSCULAR HGB CONC 31.7 g/dL (33.0-36.5); MEAN CORPUSCULAR VOLUME 87.6 FL (78-98); MEAN PLATELET VOLUME 7.7 FL (7.4-10.4); MONOCYTES # (AUTO) 1.2 X10'3 (0-0.9); MONOCYTES % (AUTO) 11.1 % (2-12); NEUTROPHILS # (AUTO) 8.9 X10'3 (1.8-7.7); NEUTROPHILS % (AUTO) 79.9 % (42-75); PLATELET COUNT 317 X10'3 (140-440); RED BLOOD COUNT 3.77 X10'6 (4.70-6.10); RED CELL DISTRIBUTION WIDTH 15.5 % (11.5-14.5); WHITE BLOOD COUNT 11.1 X10'3 (4.5-11.0)
[2023-03-16] MEDS: albuterol 2.5 MG/3 ML nebule NEB PRN (07:55)
[2023-03-16] MEDS: budesonide 0.5mg/2ml UD nebule IH SCH ×2 (07:55→20:06)
[2023-03-16] MEDS: K and/or MAG REPLACEMENT MC SCH ×2 (08:00→20:00)
[2023-03-16] MEDS: ALISKIREN 300 MG PO SCH (08:00)
[2023-03-16 08:01] LABS: ALANINE AMINOTRANSFERASE 18 U/L (12-78); ALBUMIN 2.3 G/DL (3.4-5.0); ALBUMIN/GLOBULIN RATIO 0.5 (1.1-1.5); ALKALINE PHOSPHATASE 66 IU/L (46-116); ANION GAP 8 (8-16); ASPARTATE AMINO TRANSFERASE 15 U/L (10-37); BILIRUBIN,TOTAL 0.3 MG/DL (0.1-1.0); BLOOD UREA NITROGEN 59 MG/DL (7-18); BUN/CREATININE RATIO 26.2 (10.0-20.0); CALCIUM 8.7 MG/DL (8.5-10.1); CHLORIDE 103 MMOL/L (99-107); CREATININE 2.25 MG/DL (0.60-1.10); GLUCOSE 155 MG/DL (70-104); MAGNESIUM 2.1 MG/DL (1.5-2.4); PHOSPHORUS 4.6 MG/DL (2.3-4.5); POTASSIUM 4.4 MMOL/L (3.5-5.1); SODIUM 138 MMOL/L (135-145); TOTAL CARBON DIOXIDE 27.4 MMOL/L (24-32); TOTAL PROTEIN 6.7 G/DL (6.4-8.2); eCRCL 35 ML/MIN; eGFR 29 ML/MIN
[2023-03-16] MEDS: amiodarone 200mg tablet PO SCH ×2 (08:19→20:00)
[2023-03-16] MEDS: docusate sod 100mg capsule PO SCH ×2 (08:19→21:01)
[2023-03-16] MEDS: levoTHYROXINE 25mcg tablet PO SCH (08:19)
[2023-03-16] MEDS: montelukast 10mg tablet PO SCH (08:20)
[2023-03-16] MEDS: labetalol 100mg tablet PO SCH ×2 (08:20→21:01)
[2023-03-16] MEDS: acetaminophen 325mg tablet PO PRN ×2 (08:21→21:09)
[2023-03-16] MEDS: furosemide 40mg/4ml inj IV SCH (08:22)
[2023-03-16] MEDS: normal saline 1000ml 1,000 ML IV SCH (08:35)
--- NOTE | 2023-03-16 10:42 | NUR ---
Right sided thoracentesis completed. 850ml removed. patient tolerated well. labs&pH sent
--- NOTE | 2023-03-16 11:09 | NUR ---
Patient in room PCU 3024. I have received report from Umer MENCHACA and had the opportunity to ask questions and assume patient care.
[2023-03-16 11:34] LABS: BFSOURCE PLEURAL FLD
[2023-03-16 11:35] LABS: BF RBC COUNT 116000 /CU MM; BF WBC COUNT 31500 /CU MM (0-1000); BFAPPEAR BLOODY; BFCOLOR RED; BFVOLUME 53 ML; EOSINOPHILS,BODY FLUID 17 %; LYMPHOCYTES,BODY FLUID 20 %; MONOCYTES,BODY FLUID 3 %; NEUTROPHILS,BODY FLUID 60 %
[2023-03-16 11:43] LABS: BFSOURCE PLEURAL FLD
[2023-03-16 11:44] LABS: GLUCOSE,BODY FLUID 142 MG/DL; LDH,BODY FLUID 350 U/L; TOTAL PROTEIN,BODY FLUID 5.1 G/DL
[2023-03-16] MEDS ORDERED: [UNRECOGNIZED DRUG - CODE] PO (13:56)
--- NOTE | 2023-03-16 18:06 | NUR ---
Student documentation: I have reviewed interventions, assessments performed and documented by Samir CARRERA.
--- NOTE | 2023-03-16 18:28 | NUR ---
Problems reprioritized. Patient report given, questions answered & plan of care reviewed with Kathia MENCHACA.
--- NOTE | 2023-03-16 18:28 | NUR ---
Problems reprioritized. Patient report given, questions answered & plan of care reviewed with NIKOLAI Bae.
[2023-03-16] MEDS: ipratropium/albuterol 3ml nebule NEB PRN (20:06)
[2023-03-16] MEDS: insulin glargine (Lantus) pen - multi-dose SQ SCH (21:00)
[2023-03-17] VITALS (19 sets, daily range): BP systolic 129–152; BP diastolic 61–67; PULSE 61–79; RESP 16–29; TEMP 97.8–98.8; O2SAT 85–96
[2023-03-17] MEDS: ipratropium/albuterol 3ml nebule NEB PRN ×3 (03:57→15:39)
--- NOTE | 2023-03-17 04:17 | NUR ---
PT REFUSING URINAL SO WE CAN GET ACCURATE MEASURE OF URINE OUTPUT. I ASKED HIM IF HE WOULD PLEASE TRY AND USE A HAT. HE SAID HE WILL TRY TO. HAT IS IN PLACE AND READY FOR PT TO USE.
--- NOTE | 2023-03-17 06:49 | NUR ---
Problems reprioritized. Patient report given, questions answered & plan of care reviewed with NIKOLAI SOSA.
--- NOTE | 2023-03-17 07:02 | NUR ---
Patient in room PCU 3024. I have received report from Kathia and had the opportunity to ask questions and assume patient care.
[2023-03-17] MEDS: docusate sod 100mg capsule PO SCH ×2 (08:00→20:00)
[2023-03-17] MEDS: K and/or MAG REPLACEMENT MC SCH ×2 (08:00→20:00)
[2023-03-17] MEDS: ALISKIREN 300 MG PO SCH (08:00)
[2023-03-17] MEDS: levoTHYROXINE 25mcg tablet PO SCH (08:07)
[2023-03-17] MEDS: montelukast 10mg tablet PO SCH (08:07)
[2023-03-17] MEDS: amiodarone 200mg tablet PO SCH ×2 (08:07→20:00)
[2023-03-17] MEDS: labetalol 100mg tablet PO SCH ×2 (08:08→20:04)
[2023-03-17] MEDS: furosemide 40mg/4ml inj IV SCH (08:51)
[2023-03-17 08:54] LABS: BASOPHILS # (AUTO) 0.1 X10'3 (0-0.2); BASOPHILS % (AUTO) 0.9 % (0-1); EOSINOPHILS # (AUTO) 0.1 X10'3 (0-0.9); EOSINOPHILS % (AUTO) 1.1 % (0-6); HEMOGLOBIN 10.6 g/dl (14.0-17.9); LYMPHOCYTES # (AUTO) 0.9 X10'3 (1.1-4.8); LYMPHOCYTES % (AUTO) 10.2 % (21-51); MEAN CORPUSCULAR HEMOGLOBIN 28.1 PG (27.0-31.0); MONOCYTES % (AUTO) 11.3 % (2-12); NEUTROPHILS # (AUTO) 6.6 X10'3 (1.8-7.7); NEUTROPHILS % (AUTO) 76.5 % (42-75); PLATELET COUNT 362 X10'3 (140-440); RED BLOOD COUNT 3.75 X10'6 (4.70-6.10); RED CELL DISTRIBUTION WIDTH 15.4 % (11.5-14.5); WHITE BLOOD COUNT 8.6 X10'3 (4.5-11.0)
[2023-03-17] MEDS: budesonide 0.5mg/2ml UD nebule IH SCH ×2 (09:03→19:35)
[2023-03-17 09:27] LABS: ALANINE AMINOTRANSFERASE 21 U/L (12-78); ALBUMIN 2.2 G/DL (3.4-5.0); ALBUMIN/GLOBULIN RATIO 0.5 (1.1-1.5); ALKALINE PHOSPHATASE 68 IU/L (46-116); ANION GAP 8 (8-16); ASPARTATE AMINO TRANSFERASE 16 U/L (10-37); BILIRUBIN,TOTAL 0.3 MG/DL (0.1-1.0); BLOOD UREA NITROGEN 49 MG/DL (7-18); BUN/CREATININE RATIO 25.9 (10.0-20.0); CALCIUM 8.7 MG/DL (8.5-10.1); CHLORIDE 106 MMOL/L (99-107); CREATININE 1.89 MG/DL (0.60-1.10); GLUCOSE 112 MG/DL (70-104); PHOSPHORUS 3.9 MG/DL (2.3-4.5); POTASSIUM 4.2 MMOL/L (3.5-5.1); SODIUM 142 MMOL/L (135-145); TOTAL CARBON DIOXIDE 28.2 MMOL/L (24-32); TOTAL PROTEIN 6.7 G/DL (6.4-8.2); eCRCL 42 ML/MIN; eGFR 35 ML/MIN
[2023-03-17 09:33] LABS: LACTATE DEHYDROGENASE 134 U/L (85-227)
--- NOTE | 2023-03-17 09:50 | NUR ---
T/C to patients Destini. I asked her if she can bring in patients Tektilya and she said she can not but will get ahold of her sister and she will bring it in today.
--- NOTE | 2023-03-17 11:00 | NUR ---
T/C to Dr Calderon and iquired if patient is on 2L fluid restriction and Dr Calderon said no he's not.
--- NOTE | 2023-03-17 13:27 | NUR ---
WAITING ON PHARMACY FOR ROCEPHIN ANTIBIOTIC. Addendum: 03/17/23 at 1334 by Mihir Koroma RN CALLED PHARMACIST EMILIA, AND HE STATED THEY ARE GOING TO HAVE TO MAKE ANOTHER BAG OF ROCEPHIN ANTIBIOTIC AT THIS TIME. WILL RECHECK IN 15MIN FOR ANTIBIOTIC.
[2023-03-17] MEDS: azithromycin 250mg tablet PO SCH (13:34)
[2023-03-17] MEDS: CefTRIAXone/D5W-Rocephin 1gm 50 ML IV SCH (13:43)
--- NOTE | 2023-03-17 15:34 | NUR ---
O2 Sat at rest on room air:_85__% If below 89%: Recovery O2 Sat at rest on 2___LPM:_85__%:__91_% via____NASAL CANNULA (mask/nasal cannula, etc..) No further documentation is necessary. If O2 Sat did not drop below 89% on room air,ambulate patient on room air. O2 Sat while ambulating on room air:___% Recovery O2 Sat while ambulating on ___LPM:___% No further documentation is necessary. If patient does not drop below 89% while ambulating, he/she does not qualify for home O2.
--- NOTE | 2023-03-17 18:23 | NUR ---
Problems reprioritized. Patient report given, questions answered & plan of care reviewed with Kathia.
[2023-03-17] MEDS: albuterol 2.5 MG/3 ML nebule NEB PRN (19:35)
--- NOTE | 2023-03-17 20:00 | NUR ---
PT REFUSES TO USE THE URINAL OR THE HAT UNABLE TO GET ACCURATE OUTPUT FOR THIS PATIENT.
[2023-03-17] MEDS: apixaban 5mg tablet PO SCH (20:04)
[2023-03-17] MEDS: acetaminophen 325mg tablet PO PRN (20:05)
[2023-03-17] MEDS: insulin glargine (Lantus) pen - multi-dose SQ SCH (21:00)
[2023-03-17] MEDS: normal saline 1000ml 1,000 ML IV SCH (22:05)
[2023-03-18] VITALS (17 sets, daily range): BP systolic 121–156; BP diastolic 48–77; PULSE 59–82; RESP 12–30; TEMP 97.8–99; O2SAT 92–95
[2023-03-18] MEDS: ipratropium/albuterol 3ml nebule NEB PRN (03:17)
--- NOTE | 2023-03-18 06:25 | NUR ---
Problems reprioritized. Patient report given, questions answered & plan of care reviewed with ELINA SOSA.
[2023-03-18] MEDS: albuterol 2.5 MG/3 ML nebule NEB PRN ×2 (07:21→19:55)
[2023-03-18] MEDS: budesonide 0.5mg/2ml UD nebule IH SCH ×2 (07:21→19:55)
[2023-03-18 07:24] LABS: BASOPHILS # (AUTO) 0.1 X10'3 (0-0.2); BASOPHILS % (AUTO) 1.1 % (0-1); EOSINOPHILS # (AUTO) 0.1 X10'3 (0-0.9); EOSINOPHILS % (AUTO) 0.7 % (0-6); HEMATOCRIT 31.5 % (42.0-52.0); HEMOGLOBIN 10.2 g/dl (14.0-17.9); LYMPHOCYTES % (AUTO) 9.7 % (21-51); MEAN CORPUSCULAR HEMOGLOBIN 28.4 PG (27.0-31.0); MEAN CORPUSCULAR HGB CONC 32.5 g/dL (33.0-36.5); MEAN CORPUSCULAR VOLUME 87.5 FL (78-98); MEAN PLATELET VOLUME 7.9 FL (7.4-10.4); MONOCYTES # (AUTO) 1.4 X10'3 (0-0.9); MONOCYTES % (AUTO) 13.6 % (2-12); NEUTROPHILS # (AUTO) 7.5 X10'3 (1.8-7.7); NEUTROPHILS % (AUTO) 74.9 % (42-75); PLATELET COUNT 390 X10'3 (140-440); RED CELL DISTRIBUTION WIDTH 15.4 % (11.5-14.5)
[2023-03-18 07:41] LABS: ALANINE AMINOTRANSFERASE 22 U/L (12-78); ALBUMIN 2.2 G/DL (3.4-5.0); ALBUMIN/GLOBULIN RATIO 0.5 (1.1-1.5); ALKALINE PHOSPHATASE 67 IU/L (46-116); ANION GAP 8 (8-16); ASPARTATE AMINO TRANSFERASE 18 U/L (10-37); BILIRUBIN,TOTAL 0.3 MG/DL (0.1-1.0); BLOOD UREA NITROGEN 40 MG/DL (7-18); BUN/CREATININE RATIO 25.2 (10.0-20.0); CALCIUM 8.7 MG/DL (8.5-10.1); CHLORIDE 105 MMOL/L (99-107); CREATININE 1.59 MG/DL (0.60-1.10); GLUCOSE 129 MG/DL (70-104); MAGNESIUM 1.7 MG/DL (1.5-2.4); PHOSPHORUS 3.4 MG/DL (2.3-4.5); POTASSIUM 4.3 MMOL/L (3.5-5.1); SODIUM 140 MMOL/L (135-145); TOTAL CARBON DIOXIDE 26.7 MMOL/L (24-32); TOTAL PROTEIN 6.6 G/DL (6.4-8.2); eCRCL 50 ML/MIN; eGFR 43 ML/MIN
[2023-03-18] MEDS: levoTHYROXINE 25mcg tablet PO SCH (07:42)
[2023-03-18] MEDS: docusate sod 100mg capsule PO SCH ×2 (07:42→20:00)
[2023-03-18] MEDS: azithromycin 250mg tablet PO SCH (07:43)
[2023-03-18] MEDS: apixaban 5mg tablet PO SCH (07:43)
[2023-03-18] MEDS: labetalol 100mg tablet PO SCH ×2 (07:43→21:51)
[2023-03-18] MEDS: amiodarone 200mg tablet PO SCH ×2 (07:43→20:00)
[2023-03-18] MEDS: ALISKIREN 300 MG PO SCH (07:44)
[2023-03-18] MEDS: montelukast 10mg tablet PO SCH (07:44)
[2023-03-18] MEDS: K and/or MAG REPLACEMENT MC SCH ×2 (08:00→20:00)
[2023-03-18] MEDS ORDERED: ALISKIREN HEMIFUMARATE 300 MG PO SCH (08:44)
[2023-03-18] MEDS: CefTRIAXone/D5W-Rocephin 1gm 50 ML IV SCH (09:09)
[2023-03-18] MEDS: furosemide 40mg/4ml inj IV SCH (09:10)
[2023-03-18] MEDS ORDERED: LORazepam 2 mg/ml vial IV ONE ×2 (10:45→21:00)
--- NOTE | 2023-03-18 10:56 | NUR ---
Initial: Pt admit for pleural effusion, acute on chronic hypoxemic respiratory failure, acute renal failure on CKD, and type II KS with elevated proBNP. Per EMR pt s/p thoracentesis 03/16 with 850 mL fluid removed. Pt on a heart healthy CHO controlled diet and eating well, documented with 100% PO intake of all meals meeting 86% estimated energy needs and 100% estimated protein needs. D/w dietary to send double protein BIDLD for satiety and to further assist with meeting estimated nutrient needs. Recommend removing CHO controlled diet restriction if able given T2DM well controlled with A1c 6.1%. LBM 03/17 per I&O. Will continue to follow and monitor need for further nutrition intervention. Recommendations: 1) Continue heart healthy diet; discontinue CHO controlled restriction given A1c 6.1% 2) Double protein BIDLD for satiety and to assist with meeting estimated nutrient needs 3) Routine bowel care 4) Weekly scaled weights Addendum: 03/18/23 at [address] Amended: Links added.
[2023-03-18] MEDS ORDERED: furosemide 20MG tablet PO ONE (11:35)
--- NOTE | 2023-03-18 13:33 | NUR ---
Chest tube placed, 3200ml removed, sample taken to lab for cytology. Placed on continuous suction. Spo2 94% Charge nurse and EDGE GRINDER notified.
[2023-03-18] MEDS: acetaminophen 325mg tablet PO PRN ×2 (14:06→21:52)
[2023-03-18] MEDS: HYDROchlorothiazide 25mg tablet PO SCH (14:11)
[2023-03-18] MEDS: insulin glargine (Lantus) pen - multi-dose SQ SCH (21:00)
[2023-03-18] MEDS: normal saline 1000ml 1,000 ML IV SCH (23:51)
[2023-03-19] VITALS (12 sets, daily range): BP systolic 102–135; BP diastolic 46–74; PULSE 54–94; RESP 12–26; TEMP 97.6–99; O2SAT 92–98
[2023-03-19] MEDS: acetaminophen 325mg tablet PO PRN (03:57)
--- NOTE | 2023-03-19 06:37 | NUR ---
Patient in room PCU 3024. I have received report from IAN ANTOINE and had the opportunity to ask questions and assume patient care.
[2023-03-19] MEDS: budesonide 0.5mg/2ml UD nebule IH SCH ×2 (07:59→20:23)
[2023-03-19] MEDS: docusate sod 100mg capsule PO SCH ×2 (08:00→20:00)
[2023-03-19] MEDS ORDERED: HYDROchlorothiazide 25mg tablet PO SCH (08:00)
[2023-03-19] MEDS: albuterol 2.5 MG/3 ML nebule NEB PRN ×2 (08:03→20:23)
[2023-03-19 09:25] LABS: BASOPHILS # (AUTO) 0.1 X10'3 (0-0.2); BASOPHILS % (AUTO) 0.9 % (0-1); EOSINOPHILS # (AUTO) 0.4 X10'3 (0-0.9); HEMATOCRIT 31.5 % (42.0-52.0); HEMOGLOBIN 10.3 g/dl (14.0-17.9); LYMPHOCYTES # (AUTO) 0.9 X10'3 (1.1-4.8); LYMPHOCYTES % (AUTO) 8.8 % (21-51); MEAN CORPUSCULAR HEMOGLOBIN 29.1 PG (27.0-31.0); MEAN CORPUSCULAR HGB CONC 32.7 g/dL (33.0-36.5); MEAN CORPUSCULAR VOLUME 88.9 FL (78-98); MEAN PLATELET VOLUME 8.3 FL (7.4-10.4); MONOCYTES # (AUTO) 1.4 X10'3 (0-0.9); MONOCYTES % (AUTO) 13.7 % (2-12); NEUTROPHILS # (AUTO) 7.3 X10'3 (1.8-7.7); NEUTROPHILS % (AUTO) 72.6 % (42-75); PLATELET COUNT 361 X10'3 (140-440); RED BLOOD COUNT 3.54 X10'6 (4.70-6.10); RED CELL DISTRIBUTION WIDTH 15.5 % (11.5-14.5)
[2023-03-19 09:32] LABS: ALANINE AMINOTRANSFERASE 21 U/L (12-78); ALBUMIN/GLOBULIN RATIO 0.5 (1.1-1.5); ALKALINE PHOSPHATASE 70 IU/L (46-116); ANION GAP 6 (8-16); ASPARTATE AMINO TRANSFERASE 23 U/L (10-37); BILIRUBIN,TOTAL 0.2 MG/DL (0.1-1.0); BLOOD UREA NITROGEN 35 MG/DL (7-18); BUN/CREATININE RATIO 22.2 (10.0-20.0); CALCIUM 8.6 MG/DL (8.5-10.1); CHLORIDE 104 MMOL/L (99-107); CREATININE 1.58 MG/DL (0.60-1.10); GLUCOSE 123 MG/DL (70-104); PHOSPHORUS 3.6 MG/DL (2.3-4.5); SODIUM 139 MMOL/L (135-145); TOTAL CARBON DIOXIDE 28.9 MMOL/L (24-32); TOTAL PROTEIN 6.1 G/DL (6.4-8.2); eCRCL 50 ML/MIN; eGFR 43 ML/MIN
[2023-03-19] MEDS: CefTRIAXone/D5W-Rocephin 1gm 50 ML IV SCH (09:40)
[2023-03-19] MEDS: azithromycin 250mg tablet PO SCH (09:41)
[2023-03-19] MEDS: HYDROchlorothiazide 25mg tablet PO SCH (09:42)
[2023-03-19] MEDS: labetalol 100mg tablet PO SCH ×2 (09:42→20:41)
[2023-03-19] MEDS: amiodarone 200mg tablet PO SCH ×2 (09:42→20:00)
[2023-03-19] MEDS: montelukast 10mg tablet PO SCH (09:42)
[2023-03-19] MEDS: levoTHYROXINE 25mcg tablet PO SCH (09:43)
[2023-03-19] MEDS: ALISKIREN 300 MG PO SCH (09:43)
[2023-03-19] MEDS: furosemide 40mg tablet PO SCH (09:43)
[2023-03-19] MEDS ORDERED: tPA-cathflo 2 MG/2 ml IV flush ONE (10:58)
[2023-03-19] MEDS: K and/or MAG REPLACEMENT MC SCH ×2 (11:25→20:00)
[2023-03-19] MEDS ORDERED: HYDROcodone/acetaminophen 5mg/325mg tablet PO PRN (12:00)
[2023-03-19] MEDS: ipratropium/albuterol 3ml nebule NEB PRN (14:44)
--- NOTE | 2023-03-19 14:59 | NUR ---
Stopcock unclamped on chest tube.
[2023-03-19] MEDS: HYDROcodone/acetaminophen 10/325mg tab PO PRN (16:00)
[2023-03-19] MEDS: normal saline 1000ml 1,000 ML IV SCH (17:00)
--- NOTE | 2023-03-19 18:47 | NUR ---
Problems reprioritized. Patient report given, questions answered & plan of care reviewed with sybil villalba rn.
--- NOTE | 2023-03-19 18:50 | NUR ---
Patient in room PCU 3024. I have received report from NIKOLAI KERNS and had the opportunity to ask questions and assume patient care.
[2023-03-19] MEDS: insulin glargine (Lantus) pen - multi-dose SQ SCH (21:37)
[2023-03-20] VITALS (12 sets, daily range): BP systolic 104–128; BP diastolic 46–97; PULSE 55–71; RESP 13–26; TEMP 97.3–98.9; O2SAT 91–98
[2023-03-20] MEDS: HYDROcodone/acetaminophen 10/325mg tab PO PRN ×4 (05:13→21:25)
--- NOTE | 2023-03-20 06:15 | NUR ---
Problems reprioritized. Patient report given, questions answered & plan of care reviewed with NIKOLAI KERNS.
--- NOTE | 2023-03-20 06:29 | NUR ---
Patient in room PCU 3024. I have received report from NIKOLAI Estrada and had the opportunity to ask questions and assume patient care.
[2023-03-20] MEDS: labetalol 100mg tablet PO SCH ×2 (07:00→21:09)
[2023-03-20] MEDS: docusate sod 100mg capsule PO SCH ×2 (07:01→20:00)
[2023-03-20] MEDS: CefTRIAXone/D5W-Rocephin 1gm 50 ML IV SCH (07:10)
[2023-03-20] MEDS: montelukast 10mg tablet PO SCH (07:13)
[2023-03-20] MEDS: HYDROchlorothiazide 25mg tablet PO SCH (07:13)
[2023-03-20] MEDS: amiodarone 200mg tablet PO SCH ×2 (07:13→20:00)
[2023-03-20] MEDS: furosemide 40mg tablet PO SCH (07:13)
[2023-03-20] MEDS: levoTHYROXINE 25mcg tablet PO SCH (07:13)
[2023-03-20] MEDS: ALISKIREN 300 MG PO SCH (07:14)
[2023-03-20] MEDS: K and/or MAG REPLACEMENT MC SCH ×2 (08:00→20:00)
[2023-03-20] MEDS: normal saline 1000ml 1,000 ML IV SCH ×2 (10:05→16:27)
[2023-03-20] MEDS: budesonide 0.5mg/2ml UD nebule IH SCH ×2 (10:20→20:12)
[2023-03-20] MEDS: ipratropium/albuterol 3ml nebule NEB PRN (10:20)
[2023-03-20] MEDS: apixaban 5mg tablet PO SCH ×2 (11:26→21:09)
--- NOTE | 2023-03-20 18:30 | NUR ---
Problems reprioritized. Patient report given, questions answered & plan of care reviewed with sybil villalba rn.
--- NOTE | 2023-03-20 18:35 | NUR ---
Problems reprioritized. Patient report given, questions answered & plan of care reviewed with NIKOLAI Arrington.
[2023-03-20] MEDS: albuterol 2.5 MG/3 ML nebule NEB PRN (20:12)
[2023-03-21] VITALS (12 sets, daily range): BP systolic 113–140; BP diastolic 44–76; PULSE 53–75; RESP 14–26; TEMP 97.2–98.9; O2SAT 94–98
--- NOTE | 2023-03-21 00:01 | NUR ---
ADMINISTERED LANTUS ON TIME BUT DID NOT SAVE. CO-SIGNED BY ANOTHER RN
--- NOTE | 2023-03-21 06:34 | NUR ---
Problems reprioritized. Patient report given, questions answered & plan of care reviewed with NIKOLAI GERARDO.
[2023-03-21] MEDS: HYDROcodone/acetaminophen 10/325mg tab PO PRN ×5 (07:16→21:35)
[2023-03-21] MEDS: labetalol 100mg tablet PO SCH ×2 (07:16→07:17)
[2023-03-21] MEDS: furosemide 40mg tablet PO SCH (07:17)
[2023-03-21] MEDS: levoTHYROXINE 25mcg tablet PO SCH (07:18)
[2023-03-21] MEDS: HYDROchlorothiazide 25mg tablet PO SCH (07:18)
[2023-03-21] MEDS: apixaban 5mg tablet PO SCH ×2 (07:19→19:47)
[2023-03-21] MEDS: amiodarone 200mg tablet PO SCH ×2 (07:19→20:00)
[2023-03-21] MEDS: montelukast 10mg tablet PO SCH (07:19)
[2023-03-21] MEDS: ALISKIREN 300 MG PO SCH (07:20)
[2023-03-21] MEDS: CefTRIAXone/D5W-Rocephin 1gm 50 ML IV SCH (07:21)
[2023-03-21] MEDS: docusate sod 100mg capsule PO SCH ×2 (07:25→20:00)
[2023-03-21] MEDS: K and/or MAG REPLACEMENT MC SCH ×2 (07:26→19:48)
[2023-03-21] MEDS: albuterol 2.5 MG/3 ML nebule NEB PRN (08:20)
[2023-03-21] MEDS: budesonide 0.5mg/2ml UD nebule IH SCH ×2 (08:20→19:44)
[2023-03-21] MEDS: normal saline 1000ml 1,000 ML IV SCH (11:42)
--- NOTE | 2023-03-21 18:30 | NUR ---
Patient in room PCU 3024. I have received report from NIKOLAI PINEDA and had the opportunity to ask questions and assume patient care.
--- NOTE | 2023-03-21 18:32 | NUR ---
Report given back to Paola MILLS RN, pt doing well, no sob, still on 3L O2.
[2023-03-21] MEDS: ipratropium/albuterol 3ml nebule NEB PRN (19:44)
[2023-03-21] MEDS: insulin glargine (Lantus) pen - multi-dose SQ SCH ×2 (21:00)
[2023-03-22] VITALS (13 sets, daily range): BP systolic 114–165; BP diastolic 41–62; PULSE 54–62; RESP 12–25; TEMP 96.7–98.1; O2SAT 94–98
[2023-03-22 06:21] LABS: BASOPHILS # (AUTO) 0.1 X10'3 (0-0.2); EOSINOPHILS # (AUTO) 0.4 X10'3 (0-0.9); HEMATOCRIT 30.2 % (42.0-52.0); HEMOGLOBIN 9.7 g/dl (14.0-17.9); LYMPHOCYTES % (AUTO) 10.8 % (21-51); MEAN CORPUSCULAR HEMOGLOBIN 27.9 PG (27.0-31.0); MEAN CORPUSCULAR HGB CONC 32.2 g/dL (33.0-36.5); MEAN CORPUSCULAR VOLUME 86.7 FL (78-98); MEAN PLATELET VOLUME 7.3 FL (7.4-10.4); MONOCYTES # (AUTO) 1.3 X10'3 (0-0.9); MONOCYTES % (AUTO) 13.7 % (2-12); NEUTROPHILS # (AUTO) 6.4 X10'3 (1.8-7.7); NEUTROPHILS % (AUTO) 70.5 % (42-75); PLATELET COUNT 432 X10'3 (140-440); RED BLOOD COUNT 3.48 X10'6 (4.70-6.10); RED CELL DISTRIBUTION WIDTH 15.4 % (11.5-14.5); WHITE BLOOD COUNT 9.1 X10'3 (4.5-11.0)
--- NOTE | 2023-03-22 06:26 | NUR ---
Problems reprioritized. Patient report given, questions answered & plan of care reviewed with NIKOLAI PINEDA.
[2023-03-22 06:28] LABS: ALANINE AMINOTRANSFERASE 22 U/L (12-78); ALBUMIN/GLOBULIN RATIO 0.5 (1.1-1.5); ALKALINE PHOSPHATASE 67 IU/L (46-116); ANION GAP 3 (8-16); ASPARTATE AMINO TRANSFERASE 13 U/L (10-37); BILIRUBIN,TOTAL 0.2 MG/DL (0.1-1.0); BLOOD UREA NITROGEN 38 MG/DL (7-18); BUN/CREATININE RATIO 22.1 (10.0-20.0); CALCIUM 8.7 MG/DL (8.5-10.1); CHLORIDE 103 MMOL/L (99-107); CREATININE 1.72 MG/DL (0.60-1.10); GLUCOSE 136 MG/DL (70-104); POTASSIUM 3.9 MMOL/L (3.5-5.1); SODIUM 141 MMOL/L (135-145); TOTAL CARBON DIOXIDE 34.6 MMOL/L (24-32); TOTAL PROTEIN 6.3 G/DL (6.4-8.2); eCRCL 46 ML/MIN; eGFR 39 ML/MIN
[2023-03-22] MEDS: docusate sod 100mg capsule PO SCH ×2 (07:16→20:00)
[2023-03-22] MEDS: HYDROchlorothiazide 25mg tablet PO SCH (07:32)
[2023-03-22] MEDS: apixaban 5mg tablet PO SCH (07:32)
[2023-03-22] MEDS: levoTHYROXINE 25mcg tablet PO SCH (07:32)
[2023-03-22] MEDS: montelukast 10mg tablet PO SCH (07:33)
[2023-03-22] MEDS: labetalol 100mg tablet PO SCH ×2 (07:33→21:08)
[2023-03-22] MEDS: furosemide 40mg tablet PO SCH (07:34)
[2023-03-22] MEDS: amiodarone 200mg tablet PO SCH ×2 (07:35→20:00)
[2023-03-22] MEDS: HYDROcodone/acetaminophen 10/325mg tab PO PRN ×3 (07:35→21:07)
[2023-03-22] MEDS: ALISKIREN 300 MG PO SCH (07:35)
[2023-03-22] MEDS: CefTRIAXone/D5W-Rocephin 1gm 50 ML IV SCH (07:36)
[2023-03-22] MEDS: normal saline 1000ml 1,000 ML IV SCH (07:39)
[2023-03-22] MEDS: K and/or MAG REPLACEMENT MC SCH ×2 (07:49→20:00)
[2023-03-22] MEDS: budesonide 0.5mg/2ml UD nebule IH SCH ×2 (07:55→19:54)
[2023-03-22] MEDS: ipratropium/albuterol 3ml nebule NEB PRN (07:55)
--- NOTE | 2023-03-22 16:42 | NUR ---
Ele Student nurse supervised by Isabella MENCHACA for giving patient norco
--- NOTE | 2023-03-22 18:38 | NUR ---
Report given to Lisa MENCHACA, pt doing well at this time. He has been on the phone with his .
[2023-03-22] MEDS: albuterol 2.5 MG/3 ML nebule NEB PRN (19:54)
[2023-03-22] MEDS: insulin glargine (Lantus) pen - multi-dose SQ SCH (21:24)
--- NOTE | 2023-03-22 21:28 | NUR ---
Pt stated he takes his amiodarone 1x per day as his primary MD decreased it from 2x a day to once. I spoke with the night MD about that and he gave an order to decrease Amiodarone PO frequency to 1x per day. Order read back and placed per MD
[2023-03-23] VITALS (14 sets, daily range): BP systolic 118–167; BP diastolic 43–59; PULSE 52–76; RESP 14–26; TEMP 97.5–98.6; O2SAT 94–98
[2023-03-23] MEDS: HYDROcodone/acetaminophen 10/325mg tab PO PRN ×3 (03:31→11:29)
[2023-03-23] MEDS: normal saline 1000ml 1,000 ML IV SCH (06:01)
[2023-03-23 06:22] LABS: BASOPHILS # (AUTO) 0.1 X10'3 (0-0.2); BASOPHILS % (AUTO) 0.7 % (0-1); EOSINOPHILS # (AUTO) 0.3 X10'3 (0-0.9); EOSINOPHILS % (AUTO) 2.7 % (0-6); HEMATOCRIT 27.8 % (42.0-52.0); LYMPHOCYTES % (AUTO) 9.9 % (21-51); MEAN CORPUSCULAR HEMOGLOBIN 27.7 PG (27.0-31.0); MEAN CORPUSCULAR HGB CONC 32.2 g/dL (33.0-36.5); MEAN CORPUSCULAR VOLUME 86.1 FL (78-98); MEAN PLATELET VOLUME 7.2 FL (7.4-10.4); MONOCYTES # (AUTO) 1.6 X10'3 (0-0.9); MONOCYTES % (AUTO) 15.7 % (2-12); NEUTROPHILS # (AUTO) 7.2 X10'3 (1.8-7.7); PLATELET COUNT 393 X10'3 (140-440); RED BLOOD COUNT 3.23 X10'6 (4.70-6.10); RED CELL DISTRIBUTION WIDTH 15.3 % (11.5-14.5); WHITE BLOOD COUNT 10.1 X10'3 (4.5-11.0)
--- NOTE | 2023-03-23 06:45 | NUR ---
Problems reprioritized. Patient report given, questions answered & plan of care reviewed with Alyssa MENCHACA. Pt stable at transfer of care
[2023-03-23] MEDS: levoTHYROXINE 25mcg tablet PO SCH (07:18)
[2023-03-23 07:19] LABS: ALANINE AMINOTRANSFERASE 18 U/L (12-78); ALBUMIN 1.8 G/DL (3.4-5.0); ALBUMIN/GLOBULIN RATIO 0.4 (1.1-1.5); ALKALINE PHOSPHATASE 66 IU/L (46-116); ANION GAP 6 (8-16); ASPARTATE AMINO TRANSFERASE 12 U/L (10-37); BILIRUBIN,TOTAL 0.3 MG/DL (0.1-1.0); BLOOD UREA NITROGEN 38 MG/DL (7-18); BUN/CREATININE RATIO 22.8 (10.0-20.0); CALCIUM 8.5 MG/DL (8.5-10.1); CHLORIDE 101 MMOL/L (99-107); CREATININE 1.67 MG/DL (0.60-1.10); GLUCOSE 124 MG/DL (70-104); POTASSIUM 3.4 MMOL/L (3.5-5.1); SODIUM 140 MMOL/L (135-145); TOTAL CARBON DIOXIDE 33.2 MMOL/L (24-32); eCRCL 47 ML/MIN; eGFR 41 ML/MIN
[2023-03-23] MEDS: HYDROchlorothiazide 25mg tablet PO SCH (07:19)
[2023-03-23] MEDS: labetalol 100mg tablet PO SCH ×2 (07:19→20:43)
[2023-03-23] MEDS: montelukast 10mg tablet PO SCH (07:19)
[2023-03-23] MEDS: amiodarone 200mg tablet PO SCH (07:20)
[2023-03-23] MEDS: furosemide 40mg tablet PO SCH (07:20)
[2023-03-23] MEDS: docusate sod 100mg capsule PO SCH ×2 (07:24→20:43)
--- NOTE | 2023-03-23 07:24 | NUR ---
Message: [id number] A1C 6.1, and having accuchecks, AM Accucheck 118, can we DC? Alyssa MENCHACA [id number] Addendum: 03/23/23 at 1326 by Alyssa Yun RN Notified Dr. Calderon of patients last two accuchecks of 118 and 105, he will DC the protocol.
[2023-03-23] MEDS: ALISKIREN 300 MG PO SCH (07:28)
[2023-03-23] MEDS: K and/or MAG REPLACEMENT MC SCH ×3 (08:10→20:00)
[2023-03-23 08:37] LABS: PLATELET ESTIMATE NORMAL; TOTAL CELLS COUNTED 100
[2023-03-23 08:38] LABS: STOMATOCYTES 2+
[2023-03-23] MEDS: budesonide 0.5mg/2ml UD nebule IH SCH ×2 (10:16→20:26)
[2023-03-23] MEDS: albuterol 2.5 MG/3 ML nebule NEB PRN (10:16)
[2023-03-23] MEDS ORDERED: magnesium 2GM in 50ml NS 50 ML IV PRN (11:50)
[2023-03-23] MEDS ORDERED: potassium Cl 40MEQ/1/2NS 520ml 520 ML IV PRN (11:50)
[2023-03-23] MEDS ORDERED: magnesium 4gm in 100ml NS 100 ML IV PRN (11:50)
[2023-03-23] MEDS ORDERED: potassium Cl 20 mEq SR tablet PO PRN (11:50)
[2023-03-23] MEDS ORDERED: magnesium Cl slow-release 64mg tablet PO PRN (11:50)
--- NOTE | 2023-03-23 13:46 | NUR ---
Student documentation: I have reviewed interventions, assessments performed and documented by Ousmane CARRERA of [facility]. Student Medication Administration: For this medication-pass in the time frame of 5033-4881, all medication were reviewed, dispensed, administered and documented per hospital policy by Ousmane CARRERA of [facility].
[2023-03-23] MEDS ORDERED: oxyCODONE/APAP 5-325mg tablet PO PRN (15:20)
[2023-03-23] MEDS: potassium Cl 20 mEq SR tablet PO PRN (17:00)
--- NOTE | 2023-03-23 18:04 | NUR ---
Report given to Lisa MENCHACA
--- NOTE | 2023-03-23 19:15 | NUR ---
Pt refused new IV start as he is "not receiving any IV medications". Nurse educated pt on need IV access and risks associated with not having it. Pt is aware and still refuses IV at this time.
[2023-03-23] MEDS: oxyCODONE/APAP 10/325mg tablet PO PRN (19:46)
[2023-03-23] MEDS: ipratropium/albuterol 3ml nebule NEB PRN (20:26)
[2023-03-24] VITALS (12 sets, daily range): BP systolic 139–160; BP diastolic 43–83; PULSE 47–65; RESP 16–24; TEMP 96.7–97.8; O2SAT 94–99
[2023-03-24] MEDS: oxyCODONE/APAP 10/325mg tablet PO PRN ×2 (01:49→08:11)
--- NOTE | 2023-03-24 06:36 | NUR ---
Problems reprioritized. Patient report given, questions answered & plan of care reviewed with Rosana MENCHACA. Pt stable at transfer of care
[2023-03-24] MEDS: levoTHYROXINE 25mcg tablet PO SCH (07:25)
[2023-03-24] MEDS: docusate sod 100mg capsule PO SCH ×2 (08:00→20:00)
[2023-03-24] MEDS: K and/or MAG REPLACEMENT MC SCH ×2 (08:00→20:00)
[2023-03-24] MEDS ORDERED: HYDROcodone/acetaminophen 5mg/325mg tablet PO PRN (08:40)
[2023-03-24] MEDS ORDERED: cefazolin/dext.iso 2gm/50ml 50 ML IV ONE (08:55)
[2023-03-24] MEDS ORDERED: MESSAGE TO PHARMACY IJ ONE (08:55)
[2023-03-24] MEDS ORDERED: gabapentin 400mg capsule PO ONE (08:55)
[2023-03-24] MEDS: ipratropium/albuterol 3ml nebule NEB PRN (09:05)
[2023-03-24] MEDS: budesonide 0.5mg/2ml UD nebule IH SCH ×2 (09:06→20:13)
[2023-03-24 09:14] LABS: BASOPHILS # (AUTO) 0.1 X10'3 (0-0.2); BASOPHILS % (AUTO) 1.1 % (0-1); EOSINOPHILS # (AUTO) 0.2 X10'3 (0-0.9); EOSINOPHILS % (AUTO) 2.1 % (0-6); HEMATOCRIT 30.3 % (42.0-52.0); HEMOGLOBIN 9.6 g/dl (14.0-17.9); LYMPHOCYTES # (AUTO) 0.9 X10'3 (1.1-4.8); LYMPHOCYTES % (AUTO) 8.4 % (21-51); MEAN CORPUSCULAR HEMOGLOBIN 27.3 PG (27.0-31.0); MEAN CORPUSCULAR HGB CONC 31.8 g/dL (33.0-36.5); MEAN CORPUSCULAR VOLUME 85.8 FL (78-98); MEAN PLATELET VOLUME 7.6 FL (7.4-10.4); MONOCYTES # (AUTO) 1.2 X10'3 (0-0.9); MONOCYTES % (AUTO) 10.9 % (2-12); NEUTROPHILS # (AUTO) 8.5 X10'3 (1.8-7.7); NEUTROPHILS % (AUTO) 77.5 % (42-75); PLATELET COUNT 429 X10'3 (140-440); RED BLOOD COUNT 3.53 X10'6 (4.70-6.10); RED CELL DISTRIBUTION WIDTH 15.3 % (11.5-14.5)
[2023-03-24] MEDS: amiodarone 200mg tablet PO SCH (09:51)
[2023-03-24] MEDS: furosemide 40mg tablet PO SCH (09:51)
[2023-03-24] MEDS: HYDROchlorothiazide 25mg tablet PO SCH (09:51)
[2023-03-24] MEDS: ALISKIREN 300 MG PO SCH (09:52)
[2023-03-24] MEDS: montelukast 10mg tablet PO SCH (09:52)
[2023-03-24] MEDS: labetalol 100mg tablet PO SCH ×2 (09:53→19:59)
[2023-03-24] MEDS ORDERED: MESSAGE TO NURSING PO ONE (10:00)
[2023-03-24 10:14] LABS: ALANINE AMINOTRANSFERASE 15 U/L (12-78); ALBUMIN/GLOBULIN RATIO 0.4 (1.1-1.5); ALKALINE PHOSPHATASE 72 IU/L (46-116); ANION GAP 8 (8-16); ASPARTATE AMINO TRANSFERASE 20 U/L (10-37); BILIRUBIN,TOTAL 0.3 MG/DL (0.1-1.0); BLOOD UREA NITROGEN 33 MG/DL (7-18); BUN/CREATININE RATIO 21.3 (10.0-20.0); CALCIUM 8.5 MG/DL (8.5-10.1); CHLORIDE 100 MMOL/L (99-107); CREATININE 1.55 MG/DL (0.60-1.10); GLUCOSE 128 MG/DL (70-104); MAGNESIUM 1.8 MG/DL (1.5-2.4); POTASSIUM 3.8 MMOL/L (3.5-5.1); SODIUM 139 MMOL/L (135-145); TOTAL CARBON DIOXIDE 31.1 MMOL/L (24-32); TOTAL PROTEIN 6.5 G/DL (6.4-8.2); eCRCL 51 ML/MIN; eGFR 44 ML/MIN
[2023-03-24 11:11] LABS: APTT 36 SECONDS (22-32); PROTHROMBIN TIME 10.7 SECONDS (9.0-12.0)
--- NOTE | 2023-03-24 13:05 | NUR ---
Reassessment: Pt continues eating well, documented with average 92% PO intake of meals since 03/19 while receiving double protein with meals meeting 94% estimated protein needs and 100% estimated protein needs. Per EMR pt pending VATS. LBM 03/24 per EMR. No further nutrition intervention implemented at this time. Will continue to follow. Recommendations: 1) Continue heart healthy diet; discontinue CHO controlled restriction given A1c 6.1% and no longer on hyperglycemic protocol 2) Double protein BIDLD for satiety and to assist with meeting estimated nutrient needs 3) Routine bowel care 4) Weekly scaled weights Addendum: 03/24/23 at [address] Amended: Links added.
[2023-03-24] MEDS: HYDROcodone/acetaminophen 10/325mg tab PO PRN ×2 (14:56→20:00)
[2023-03-24] MEDS: mupirocin 2% nasal ointment 1gm UD NS SCH (20:00)
--- NOTE | 2023-03-24 20:00 | NUR ---
Problems reprioritized. Patient report given, questions answered & plan of care reviewed with NIKOLAI Gonzalez.
[2023-03-25] VITALS (32 sets, daily range): BP systolic 101–197; BP diastolic 50–92; PULSE 48–74; RESP 13–22; TEMP 98–98.2; O2SAT 90–99
--- NOTE | 2023-03-25 00:15 | NUR ---
Problems reprioritized. Patient report given, questions answered & plan of care reviewed with Denisa MENCHACA. Pt stable at transfer of care
--- NOTE | 2023-03-25 00:20 | NUR ---
Patient in room PCU 3024. I have received report from Lisa MENCHACA and had the opportunity to ask questions and assume patient care.
--- NOTE | 2023-03-25 01:00 | NUR ---
Reviewed previous assessment and agree with findings.
[2023-03-25] MEDS: HYDROcodone/acetaminophen 10/325mg tab PO PRN ×3 (02:19→16:03)
--- NOTE | 2023-03-25 06:15 | NUR ---
Patient in room PCU 3024. I have received report from NIKOLAI Crawley and had the opportunity to ask questions and assume patient care.
[2023-03-25 07:47] LABS: BASOPHILS # (AUTO) 0.1 X10'3 (0-0.2); BASOPHILS % (AUTO) 0.9 % (0-1); EOSINOPHILS # (AUTO) 0.4 X10'3 (0-0.9); EOSINOPHILS % (AUTO) 4.3 % (0-6); HEMATOCRIT 27.8 % (42.0-52.0); HEMOGLOBIN 9.2 g/dl (14.0-17.9); LYMPHOCYTES # (AUTO) 1.1 X10'3 (1.1-4.8); LYMPHOCYTES % (AUTO) 11.5 % (21-51); MEAN CORPUSCULAR HEMOGLOBIN 28.3 PG (27.0-31.0); MEAN PLATELET VOLUME 7.5 FL (7.4-10.4); MONOCYTES # (AUTO) 1.2 X10'3 (0-0.9); MONOCYTES % (AUTO) 12.1 % (2-12); NEUTROPHILS # (AUTO) 6.8 X10'3 (1.8-7.7); NEUTROPHILS % (AUTO) 71.2 % (42-75); PLATELET COUNT 385 X10'3 (140-440); RED BLOOD COUNT 3.24 X10'6 (4.70-6.10); RED CELL DISTRIBUTION WIDTH 15.2 % (11.5-14.5); WHITE BLOOD COUNT 9.5 X10'3 (4.5-11.0)
[2023-03-25] MEDS: budesonide 0.5mg/2ml UD nebule IH SCH ×2 (07:49→20:13)
[2023-03-25] MEDS: ipratropium/albuterol 3ml nebule NEB PRN (07:49)
[2023-03-25] MEDS: docusate sod 100mg capsule PO SCH ×2 (08:00→20:28)
[2023-03-25] MEDS: ALISKIREN 300 MG PO SCH (08:00)
[2023-03-25] MEDS: K and/or MAG REPLACEMENT MC SCH ×2 (08:00→20:00)
[2023-03-25] MEDS: labetalol 100mg tablet PO SCH ×2 (08:00→20:28)
[2023-03-25 08:05] LABS: ALANINE AMINOTRANSFERASE 16 U/L (12-78); ALBUMIN 1.8 G/DL (3.4-5.0); ALBUMIN/GLOBULIN RATIO 0.4 (1.1-1.5); ALKALINE PHOSPHATASE 66 IU/L (46-116); ANION GAP 6 (8-16); ASPARTATE AMINO TRANSFERASE 25 U/L (10-37); BILIRUBIN,TOTAL 0.2 MG/DL (0.1-1.0); BLOOD UREA NITROGEN 31 MG/DL (7-18); BUN/CREATININE RATIO 21.7 (10.0-20.0); CALCIUM 8.7 MG/DL (8.5-10.1); CHLORIDE 100 MMOL/L (99-107); CREATININE 1.43 MG/DL (0.60-1.10); GLUCOSE 116 MG/DL (70-104); MAGNESIUM 1.9 MG/DL (1.5-2.4); POTASSIUM 3.4 MMOL/L (3.5-5.1); SODIUM 139 MMOL/L (135-145); TOTAL CARBON DIOXIDE 33.4 MMOL/L (24-32); eCRCL 55 ML/MIN; eGFR 49 ML/MIN
[2023-03-25] MEDS ORDERED: gabapentin 400mg capsule PO ONE (10:00)
[2023-03-25] MEDS: mupirocin 2% nasal ointment 1gm UD NS SCH ×2 (10:01→20:29)
[2023-03-25] MEDS: furosemide 40mg tablet PO SCH (10:02)
[2023-03-25] MEDS: amiodarone 200mg tablet PO SCH (10:08)
[2023-03-25] MEDS: HYDROchlorothiazide 25mg tablet PO SCH (10:09)
[2023-03-25] MEDS: montelukast 10mg tablet PO SCH (10:10)
[2023-03-25] MEDS: levoTHYROXINE 25mcg tablet PO SCH (10:16)
[2023-03-25] MEDS: potassium Cl 20 mEq SR tablet PO PRN (10:16)
--- NOTE | 2023-03-25 11:00 | NUR ---
Pt off the floor to have VATS procedure. Pt in NAD, at bedside.
[2023-03-25] MEDS ORDERED: LIDOcaine 1% (10mg/ml) 2ml vial ONE (11:31)
[2023-03-25] MEDS ORDERED: NORMAL SALINE IPL ONE (11:35)
[2023-03-25] MEDS ORDERED: STERILE TALC IPL ONE (11:35)
[2023-03-25] MEDS ORDERED: midazolam 1 mg/ML 2ml injection ONE (12:01)
[2023-03-25] MEDS ORDERED: fentaNYL /PF 50mcg/ml 5ml ampule ONE (12:02)
[2023-03-25] MEDS ORDERED: propofol inj 20 ML IV ONE (12:02)
[2023-03-25] MEDS ORDERED: LIDOcaine 1% 30ml preserv. free vial ONE (12:17)
[2023-03-25] MEDS ORDERED: BUPIVAcaine/PF 2.5mg/ml (0.25%) 10ml vial ONE (12:17)
[2023-03-25] MEDS ORDERED: rocuronium 10mg/ml inj IV ONE ×2 (12:19→13:54)
[2023-03-25] MEDS ORDERED: sevoflurane 250ml liquid IH ONE (12:19)
[2023-03-25] MEDS ORDERED: dexamethasone sod phosphate 4mg/ml inj. ONE (13:54)
[2023-03-25] MEDS ORDERED: ondansetron/PF 4mg/2ml inj ONE (13:54)
[2023-03-25] MEDS ORDERED: sugammadex 200mg/2ml injection IV ONE (13:55)
[2023-03-25] MEDS ORDERED: ondansetron/PF 4mg/2ml inj IV PRN ×2 (14:00→14:15)
[2023-03-25] MEDS ORDERED: HYDROcodone/acetaminophen 10/325mg tab PO PRN (14:00)
[2023-03-25] MEDS ORDERED: metoclopramide 5 mg/ml inj IV PRN (14:00)
[2023-03-25] MEDS ORDERED: morphine 2 MG/ML inj. syringe IV PRN ×2 (14:00→14:15)
[2023-03-25] MEDS ORDERED: albuterol 2.5 MG/3 ML nebule NEB PRN (14:00)
[2023-03-25] MEDS ORDERED: morphine 4 MG/ML inj SYRINge IV PRN ×2 (14:00→14:15)
[2023-03-25] MEDS ORDERED: MESSAGE TO PHARMACY PO ONE (14:05)
[2023-03-25] MEDS ORDERED: dextrose 50%-water 50ml dispensing syringe IV PRN ×2 (14:05)
[2023-03-25] MEDS ORDERED: glucagon, human recombinant 1mg kit SUBCUT PRN (14:05)
[2023-03-25] MEDS ORDERED: insulin Lispro (HumaLOG) vial - multi-dose SQ SCH (14:05)
[2023-03-25] MEDS ORDERED: DEXTROSE 15 GM of carb/4 tabs (each vial/BOTTLE has 4 tablets) PO PRN ×2 (14:05)
[2023-03-25] MEDS ORDERED: meperidine/PF 25mg/ml syringe IV PRN ×3 (14:15)
[2023-03-25] MEDS ORDERED: proCHLORperazine 10 MG/2 ml inj IV PRN (14:15)
[2023-03-25] MEDS ORDERED: ringers solution, lacted 1,000 ML IV SCH (14:15)
--- NOTE | 2023-03-25 15:42 | NUR ---
REPORT CALLED TO NOEMI MENCHACA. TRANSFERRED TO 2046. UPDATED. NURSE AWARE PATIENT BELONGINGS ARE IN OLD ROOM 3026Q.
--- NOTE | 2023-03-25 18:22 | NUR ---
Problems reprioritized. Patient report given, questions answered & plan of care reviewed with NIKOLAI Duckworth.
--- NOTE | 2023-03-25 18:30 | NUR ---
Patient in room ICU 2046. I have received report from Jerri MENCHACA and had the opportunity to ask questions and assume patient care.
[2023-03-25] MEDS: ceFAZolin inj. 1,000 MG in dextrose 5%-water 50ml 50 ML IV SCH (19:41)
[2023-03-25] MEDS: albuterol 2.5 MG/3 ML nebule NEB PRN (20:13)
[2023-03-25] MEDS: gabapentin 300mg capsule PO SCH (20:28)
[2023-03-25] MEDS: insulin glargine (Lantus) pen - multi-dose SQ SCH (21:00)
[2023-03-26] VITALS (30 sets, daily range): BP systolic 97–169; BP diastolic 42–63; PULSE 48–65; RESP 13–22; TEMP 97.8; O2SAT 89–99
[2023-03-26] MEDS: ceFAZolin inj. 1,000 MG in dextrose 5%-water 50ml 50 ML IV SCH (00:28)
[2023-03-26 02:17] LABS: BASOPHILS % (AUTO) 0.2 % (0-1); EOSINOPHILS % (AUTO) 0 % (0-6); HEMOGLOBIN 9.2 g/dl (14.0-17.9); LYMPHOCYTES # (AUTO) 0.5 X10'3 (1.1-4.8); LYMPHOCYTES % (AUTO) 3.8 % (21-51); MEAN CORPUSCULAR HEMOGLOBIN 27.9 PG (27.0-31.0); MEAN CORPUSCULAR HGB CONC 32.8 g/dL (33.0-36.5); MEAN PLATELET VOLUME 6.9 FL (7.4-10.4); MONOCYTES # (AUTO) 0.6 X10'3 (0-0.9); MONOCYTES % (AUTO) 4.5 % (2-12); NEUTROPHILS # (AUTO) 12.5 X10'3 (1.8-7.7); NEUTROPHILS % (AUTO) 91.5 % (42-75); PLATELET COUNT 438 X10'3 (140-440); RED CELL DISTRIBUTION WIDTH 15.1 % (11.5-14.5); WHITE BLOOD COUNT 13.7 X10'3 (4.5-11.0)
[2023-03-26 02:32] LABS: ALANINE AMINOTRANSFERASE 14 U/L (12-78); ALBUMIN 1.8 G/DL (3.4-5.0); ALBUMIN/GLOBULIN RATIO 0.4 (1.1-1.5); ALKALINE PHOSPHATASE 64 IU/L (46-116); ANION GAP 4 (8-16); ASPARTATE AMINO TRANSFERASE 20 U/L (10-37); BILIRUBIN,TOTAL 0.2 MG/DL (0.1-1.0); BLOOD UREA NITROGEN 25 MG/DL (7-18); BUN/CREATININE RATIO 19.1 (10.0-20.0); CALCIUM 8.4 MG/DL (8.5-10.1); CHLORIDE 101 MMOL/L (99-107); CREATININE 1.31 MG/DL (0.60-1.10); GLUCOSE 174 MG/DL (70-104); MAGNESIUM 1.7 MG/DL (1.5-2.4); POTASSIUM 4.4 MMOL/L (3.5-5.1); SODIUM 141 MMOL/L (135-145); TOTAL CARBON DIOXIDE 35.9 MMOL/L (24-32); eCRCL 60 ML/MIN; eGFR 54 ML/MIN
[2023-03-26] MEDS: HYDROcodone/acetaminophen 10/325mg tab PO PRN ×3 (05:28→18:34)
--- NOTE | 2023-03-26 06:15 | NUR ---
Problems reprioritized. Patient report given, questions answered & plan of care reviewed with Jerri MENCHACA.
--- NOTE | 2023-03-26 06:25 | NUR ---
Patient in room ICU 2046. I have received report from NIKOLAI Duckworth and had the opportunity to ask questions and assume patient care.
[2023-03-26] MEDS: levoTHYROXINE 25mcg tablet PO SCH (06:43)
[2023-03-26] MEDS: ipratropium/albuterol 3ml nebule NEB PRN ×2 (07:37→16:53)
[2023-03-26] MEDS: budesonide 0.5mg/2ml UD nebule IH SCH ×2 (07:37→21:03)
[2023-03-26] MEDS: gabapentin 300mg capsule PO SCH ×2 (07:41→21:25)
[2023-03-26] MEDS: mupirocin 2% nasal ointment 1gm UD NS SCH (07:41)
[2023-03-26] MEDS: labetalol 100mg tablet PO SCH ×2 (07:41→21:25)
[2023-03-26] MEDS: ALISKIREN 300 MG PO SCH (07:42)
[2023-03-26] MEDS: docusate sod 100mg capsule PO SCH ×3 (07:42→20:00)
[2023-03-26] MEDS: amiodarone 200mg tablet PO SCH (07:42)
[2023-03-26] MEDS: montelukast 10mg tablet PO SCH (07:42)
[2023-03-26] MEDS: furosemide 40mg tablet PO SCH (07:42)
[2023-03-26] MEDS: HYDROchlorothiazide 25mg tablet PO SCH (07:43)
[2023-03-26] MEDS: K and/or MAG REPLACEMENT MC SCH ×2 (08:00→20:00)
--- NOTE | 2023-03-26 18:13 | NUR ---
Problems reprioritized. Patient report given, questions answered & plan of care reviewed with NIKOLAI Finch.
--- NOTE | 2023-03-26 19:00 | NUR ---
Patient in room PCU 3026. I have received report from Catalina DISTRICT SALES LEADER and had the opportunity to ask questions and assume patient care.
--- NOTE | 2023-03-26 19:29 | NUR ---
Pt transferred to room 3026b on monitor after report given to nelly in pcu
[2023-03-26] MEDS: albuterol 2.5 MG/3 ML nebule NEB PRN (21:03)
[2023-03-26] MEDS: apixaban 5mg tablet PO SCH (21:24)
[2023-03-26] MEDS: insulin glargine (Lantus) pen - multi-dose SQ SCH (22:18)
[2023-03-27] VITALS (13 sets, daily range): BP systolic 107–154; BP diastolic 48–77; PULSE 52–84; RESP 14–21; TEMP 97.3–98.3; O2SAT 92–96
--- NOTE | 2023-03-27 06:45 | NUR ---
Problems reprioritized. Patient report given, questions answered & plan of care reviewed with Esme pantoja RN.
--- NOTE | 2023-03-27 07:06 | NUR ---
Patient in room U 3026. I have received report from and had the opportunity to ask questions and assume patient care. Patient awake in bed and in no acute distress.
[2023-03-27 07:26] LABS: BASOPHILS # (AUTO) 0.1 X10'3 (0-0.2); BASOPHILS % (AUTO) 0.4 % (0-1); EOSINOPHILS # (AUTO) 0.1 X10'3 (0-0.9); EOSINOPHILS % (AUTO) 0.6 % (0-6); HEMATOCRIT 26.9 % (42.0-52.0); HEMOGLOBIN 8.5 g/dl (14.0-17.9); LYMPHOCYTES # (AUTO) 1.5 X10'3 (1.1-4.8); LYMPHOCYTES % (AUTO) 11.3 % (21-51); MEAN CORPUSCULAR HEMOGLOBIN 26.9 PG (27.0-31.0); MEAN CORPUSCULAR HGB CONC 31.5 g/dL (33.0-36.5); MEAN CORPUSCULAR VOLUME 85.3 FL (78-98); MEAN PLATELET VOLUME 7.1 FL (7.4-10.4); MONOCYTES # (AUTO) 1.8 X10'3 (0-0.9); MONOCYTES % (AUTO) 14.1 % (2-12); NEUTROPHILS # (AUTO) 9.6 X10'3 (1.8-7.7); NEUTROPHILS % (AUTO) 73.6 % (42-75); PLATELET COUNT 414 X10'3 (140-440); RED BLOOD COUNT 3.16 X10'6 (4.70-6.10); RED CELL DISTRIBUTION WIDTH 15.5 % (11.5-14.5)
[2023-03-27 07:32] LABS: ALANINE AMINOTRANSFERASE 12 U/L (12-78); ALBUMIN 1.7 G/DL (3.4-5.0); ALBUMIN/GLOBULIN RATIO 0.4 (1.1-1.5); ALKALINE PHOSPHATASE 56 IU/L (46-116); ANION GAP 3 (8-16); ASPARTATE AMINO TRANSFERASE 14 U/L (10-37); BILIRUBIN,TOTAL 0.3 MG/DL (0.1-1.0); BLOOD UREA NITROGEN 42 MG/DL (7-18); BUN/CREATININE RATIO 23.1 (10.0-20.0); CALCIUM 8.2 MG/DL (8.5-10.1); CHLORIDE 99 MMOL/L (99-107); CREATININE 1.82 MG/DL (0.60-1.10); GLUCOSE 118 MG/DL (70-104); MAGNESIUM 1.9 MG/DL (1.5-2.4); POTASSIUM 3.8 MMOL/L (3.5-5.1); SODIUM 139 MMOL/L (135-145); TOTAL CARBON DIOXIDE 37.5 MMOL/L (24-32); TOTAL PROTEIN 5.7 G/DL (6.4-8.2); eCRCL 43 ML/MIN; eGFR 37 ML/MIN
[2023-03-27] MEDS: labetalol 100mg tablet PO SCH ×2 (08:00→22:32)
[2023-03-27] MEDS: docusate sod 100mg capsule PO SCH (08:00)
[2023-03-27] MEDS: K and/or MAG REPLACEMENT MC SCH ×2 (08:00→20:00)
[2023-03-27] MEDS: ipratropium/albuterol 3ml nebule NEB PRN ×2 (08:01→19:52)
[2023-03-27] MEDS: budesonide 0.5mg/2ml UD nebule IH SCH ×2 (08:01→19:52)
[2023-03-27] MEDS: levoTHYROXINE 25mcg tablet PO SCH (08:55)
[2023-03-27] MEDS: apixaban 5mg tablet PO SCH ×2 (08:56→19:33)
[2023-03-27] MEDS: ALISKIREN 300 MG PO SCH (08:56)
[2023-03-27] MEDS: gabapentin 300mg capsule PO SCH (08:56)
[2023-03-27] MEDS: HYDROchlorothiazide 25mg tablet PO SCH (08:56)
[2023-03-27] MEDS: amiodarone 200mg tablet PO SCH (08:57)
[2023-03-27] MEDS: montelukast 10mg tablet PO SCH (08:57)
[2023-03-27] MEDS: HYDROcodone/acetaminophen 10/325mg tab PO PRN ×3 (12:02→22:45)
--- NOTE | 2023-03-27 18:18 | NUR ---
Problems reprioritized. Patient report given, questions answered & plan of care reviewed with NIKOLAI Llanos. Patient stable at transfer of care.
[2023-03-27] MEDS: insulin glargine (Lantus) pen - multi-dose SQ SCH (22:43)
[2023-03-28] VITALS (13 sets, daily range): BP systolic 114–156; BP diastolic 39–67; PULSE 52–107; RESP 13–24; TEMP 97–99.2; O2SAT 92–97
--- NOTE | 2023-03-28 06:45 | NUR ---
Problems reprioritized. Patient report given, questions answered & plan of care reviewed with Esme MENCHACA.
[2023-03-28] MEDS: ALISKIREN 300 MG PO SCH (07:18)
[2023-03-28] MEDS: HYDROcodone/acetaminophen 10/325mg tab PO PRN ×4 (07:20→23:24)
[2023-03-28] MEDS: amiodarone 200mg tablet PO SCH (07:20)
[2023-03-28] MEDS: apixaban 5mg tablet PO SCH ×2 (07:20→19:37)
[2023-03-28] MEDS: montelukast 10mg tablet PO SCH (07:20)
[2023-03-28] MEDS: levoTHYROXINE 25mcg tablet PO SCH (07:20)
[2023-03-28] MEDS: budesonide 0.5mg/2ml UD nebule IH SCH ×2 (07:48→19:09)
[2023-03-28] MEDS: ipratropium/albuterol 3ml nebule NEB PRN ×2 (07:48→19:09)
[2023-03-28 07:50] LABS: BASOPHILS # (AUTO) 0.1 X10'3 (0-0.2); BASOPHILS % (AUTO) 0.6 % (0-1); EOSINOPHILS # (AUTO) 0.2 X10'3 (0-0.9); EOSINOPHILS % (AUTO) 1.7 % (0-6); HEMATOCRIT 26.2 % (42.0-52.0); HEMOGLOBIN 8.4 g/dl (14.0-17.9); LYMPHOCYTES # (AUTO) 1.3 X10'3 (1.1-4.8); LYMPHOCYTES % (AUTO) 10.7 % (21-51); MEAN CORPUSCULAR HEMOGLOBIN 27.4 PG (27.0-31.0); MEAN CORPUSCULAR HGB CONC 32.1 g/dL (33.0-36.5); MEAN CORPUSCULAR VOLUME 85.4 FL (78-98); MEAN PLATELET VOLUME 6.9 FL (7.4-10.4); MONOCYTES # (AUTO) 1.8 X10'3 (0-0.9); MONOCYTES % (AUTO) 14.8 % (2-12); NEUTROPHILS # (AUTO) 8.6 X10'3 (1.8-7.7); NEUTROPHILS % (AUTO) 72.2 % (42-75); PLATELET COUNT 381 X10'3 (140-440); RED BLOOD COUNT 3.07 X10'6 (4.70-6.10); RED CELL DISTRIBUTION WIDTH 15.6 % (11.5-14.5); WHITE BLOOD COUNT 11.9 X10'3 (4.5-11.0)
[2023-03-28] MEDS ORDERED: NORMAL SALINE IV ONE (07:50)
[2023-03-28] MEDS ORDERED: ALTEPLASE IV ONE (07:50)
[2023-03-28] MEDS ORDERED: ANGIO IV ONE (07:50)
[2023-03-28] MEDS: K and/or MAG REPLACEMENT MC SCH (08:00)
[2023-03-28 08:04] LABS: ALANINE AMINOTRANSFERASE 13 U/L (12-78); ALBUMIN 1.6 G/DL (3.4-5.0); ALBUMIN/GLOBULIN RATIO 0.4 (1.1-1.5); ALKALINE PHOSPHATASE 86 IU/L (46-116); ANION GAP 1 (8-16); ASPARTATE AMINO TRANSFERASE 19 U/L (10-37); BILIRUBIN,TOTAL 0.3 MG/DL (0.1-1.0); BLOOD UREA NITROGEN 44 MG/DL (7-18); BUN/CREATININE RATIO 26.2 (10.0-20.0); CALCIUM 7.9 MG/DL (8.5-10.1); CHLORIDE 99 MMOL/L (99-107); CREATININE 1.68 MG/DL (0.60-1.10); GLUCOSE 117 MG/DL (70-104); MAGNESIUM 1.9 MG/DL (1.5-2.4); POTASSIUM 4.1 MMOL/L (3.5-5.1); SODIUM 138 MMOL/L (135-145); TOTAL CARBON DIOXIDE 37.8 MMOL/L (24-32); eCRCL 47 ML/MIN; eGFR 40 ML/MIN
[2023-03-28] MEDS ORDERED: ALTEPLASE IJ ONE (08:10)
[2023-03-28] MEDS ORDERED: NORMAL SALINE IJ ONE (08:10)
[2023-03-28] MEDS ORDERED: ANGIO IJ ONE (08:10)
--- NOTE | 2023-03-28 09:05 | NUR ---
PAGER ID: [phone] MESSAGE: [id number], Tarun Salinas. Pts HR is 56, BP 150/54. Do you want me to hold the 200mg of labetalol or give? Esme [facility] [phone]
[2023-03-28] MEDS: labetalol 100mg tablet PO SCH ×2 (10:10→19:38)
[2023-03-28 11:11] LABS: ALBUMIN 1.6 G/DL (3.4-5.0); ANION GAP 1 (8-16); BLOOD UREA NITROGEN 44 MG/DL (7-18); CHLORIDE 98 MMOL/L (99-107); CREATININE 1.69 MG/DL (0.60-1.10); GLUCOSE 198 MG/DL (70-104); POTASSIUM 4.3 MMOL/L (3.5-5.1); SODIUM 136 MMOL/L (135-145); TOTAL CARBON DIOXIDE 36.8 MMOL/L (24-32); eCRCL 47 ML/MIN; eGFR 40 ML/MIN
--- NOTE | 2023-03-28 18:28 | NUR ---
Problems reprioritized. Patient report given, questions answered & plan of care reviewed with Michael MENCHACA, patient stable at transfer of care. .
[2023-03-28] MEDS: insulin glargine (Lantus) pen - multi-dose SQ SCH (21:00)
[2023-03-29] VITALS (15 sets, daily range): BP systolic 116–152; BP diastolic 39–87; PULSE 52–66; RESP 15–20; TEMP 97.6–98.9; O2SAT 93–98
[2023-03-29] MEDS: HYDROcodone/acetaminophen 10/325mg tab PO PRN ×4 (05:28→17:47)
--- NOTE | 2023-03-29 06:30 | NUR ---
Patient in room PCU 3026. I have received report from NIKOLAI Rodriguez and had the opportunity to ask questions and assume patient care.
[2023-03-29 06:31] LABS: BASOPHILS # (AUTO) 0.1 X10'3 (0-0.2); BASOPHILS % (AUTO) 1.1 % (0-1); EOSINOPHILS # (AUTO) 0.3 X10'3 (0-0.9); EOSINOPHILS % (AUTO) 2.5 % (0-6); HEMATOCRIT 26.4 % (42.0-52.0); HEMOGLOBIN 8.6 g/dl (14.0-17.9); LYMPHOCYTES # (AUTO) 1.5 X10'3 (1.1-4.8); LYMPHOCYTES % (AUTO) 11.3 % (21-51); MEAN CORPUSCULAR HEMOGLOBIN 27.5 PG (27.0-31.0); MEAN CORPUSCULAR HGB CONC 32.4 g/dL (33.0-36.5); MEAN CORPUSCULAR VOLUME 84.9 FL (78-98); MEAN PLATELET VOLUME 7.5 FL (7.4-10.4); MONOCYTES # (AUTO) 1.9 X10'3 (0-0.9); MONOCYTES % (AUTO) 14.4 % (2-12); NEUTROPHILS # (AUTO) 9.3 X10'3 (1.8-7.7); NEUTROPHILS % (AUTO) 70.7 % (42-75); PLATELET COUNT 380 X10'3 (140-440); RED BLOOD COUNT 3.12 X10'6 (4.70-6.10); RED CELL DISTRIBUTION WIDTH 15.5 % (11.5-14.5); WHITE BLOOD COUNT 13.1 X10'3 (4.5-11.0)
[2023-03-29 06:45] LABS: ALANINE AMINOTRANSFERASE 15 U/L (12-78); ALBUMIN 1.7 G/DL (3.4-5.0); ALBUMIN/GLOBULIN RATIO 0.4 (1.1-1.5); ALKALINE PHOSPHATASE 75 IU/L (46-116); ANION GAP 2 (8-16); ASPARTATE AMINO TRANSFERASE 20 U/L (10-37); BILIRUBIN,TOTAL 0.3 MG/DL (0.1-1.0); BLOOD UREA NITROGEN 41 MG/DL (7-18); CALCIUM 8.3 MG/DL (8.5-10.1); CHLORIDE 99 MMOL/L (99-107); CREATININE 1.64 MG/DL (0.60-1.10); GLUCOSE 121 MG/DL (70-104); POTASSIUM 3.9 MMOL/L (3.5-5.1); SODIUM 137 MMOL/L (135-145); TOTAL PROTEIN 6.1 G/DL (6.4-8.2); eCRCL 48 ML/MIN; eGFR 42 ML/MIN
[2023-03-29] MEDS: levoTHYROXINE 25mcg tablet PO SCH (07:19)
[2023-03-29] MEDS: K and/or MAG REPLACEMENT MC SCH ×3 (08:00→20:00)
[2023-03-29] MEDS: ipratropium/albuterol 3ml nebule NEB PRN ×2 (08:18→20:02)
[2023-03-29] MEDS: budesonide 0.5mg/2ml UD nebule IH SCH ×2 (08:18→20:02)
[2023-03-29] MEDS: amiodarone 200mg tablet PO SCH (08:51)
[2023-03-29] MEDS: apixaban 5mg tablet PO SCH ×2 (08:52→20:30)
[2023-03-29] MEDS: montelukast 10mg tablet PO SCH (08:53)
[2023-03-29] MEDS: ALISKIREN 300 MG PO SCH (08:53)
[2023-03-29] MEDS: labetalol 100mg tablet PO SCH ×2 (08:53→20:30)
[2023-03-29 13:40] LABS: ALBUMIN 1.7 G/DL (3.4-5.0); ANION GAP 4 (8-16); BLOOD UREA NITROGEN 36 MG/DL (7-18); BUN/CREATININE RATIO 23.7 (10.0-20.0); CALCIUM 8.1 MG/DL (8.5-10.1); CHLORIDE 96 MMOL/L (99-107); CREATININE 1.52 MG/DL (0.60-1.10); GLUCOSE 124 MG/DL (70-104); POTASSIUM 3.7 MMOL/L (3.5-5.1); SODIUM 135 MMOL/L (135-145); TOTAL CARBON DIOXIDE 34.8 MMOL/L (24-32); eCRCL 52 ML/MIN; eGFR 45 ML/MIN
--- NOTE | 2023-03-29 18:26 | NUR ---
Problems reprioritized. Patient report given, questions answered & plan of care reviewed with NIKOLAI Franklin.
[2023-03-29] MEDS: insulin glargine (Lantus) pen - multi-dose SQ SCH (20:32)
[2023-03-30] VITALS (7 sets, daily range): BP systolic 124–142; BP diastolic 41–60; PULSE 56–84; RESP 16–20; TEMP 97.6; O2SAT 94–96
[2023-03-30] MEDS: HYDROcodone/acetaminophen 10/325mg tab PO PRN ×3 (02:47→12:49)
--- NOTE | 2023-03-30 06:48 | NUR ---
report given to Esme
[2023-03-30 07:04] LABS: ALANINE AMINOTRANSFERASE 19 U/L (12-78); ALBUMIN 1.7 G/DL (3.4-5.0); ALBUMIN/GLOBULIN RATIO 0.4 (1.1-1.5); ALKALINE PHOSPHATASE 69 IU/L (46-116); ANION GAP 4 (8-16); ASPARTATE AMINO TRANSFERASE 20 U/L (10-37); BILIRUBIN,TOTAL 0.3 MG/DL (0.1-1.0); BLOOD UREA NITROGEN 36 MG/DL (7-18); BUN/CREATININE RATIO 21.3 (10.0-20.0); CALCIUM 8.3 MG/DL (8.5-10.1); CHLORIDE 99 MMOL/L (99-107); CREATININE 1.69 MG/DL (0.60-1.10); GLUCOSE 132 MG/DL (70-104); SODIUM 136 MMOL/L (135-145); TOTAL CARBON DIOXIDE 33.2 MMOL/L (24-32); eCRCL 47 ML/MIN; eGFR 40 ML/MIN
[2023-03-30 07:13] LABS: BASOPHILS # (AUTO) 0.1 X10'3 (0-0.2); BASOPHILS % (AUTO) 0.6 % (0-1); EOSINOPHILS # (AUTO) 0.4 X10'3 (0-0.9); HEMATOCRIT 25.9 % (42.0-52.0); HEMOGLOBIN 8.2 g/dl (14.0-17.9); LYMPHOCYTES # (AUTO) 1.2 X10'3 (1.1-4.8); LYMPHOCYTES % (AUTO) 8.9 % (21-51); MEAN CORPUSCULAR HEMOGLOBIN 27.1 PG (27.0-31.0); MEAN CORPUSCULAR HGB CONC 31.7 g/dL (33.0-36.5); MEAN CORPUSCULAR VOLUME 85.3 FL (78-98); MEAN PLATELET VOLUME 7.3 FL (7.4-10.4); MONOCYTES # (AUTO) 1.7 X10'3 (0-0.9); NEUTROPHILS # (AUTO) 9.8 X10'3 (1.8-7.7); NEUTROPHILS % (AUTO) 74.5 % (42-75); PLATELET COUNT 384 X10'3 (140-440); RED BLOOD COUNT 3.03 X10'6 (4.70-6.10); RED CELL DISTRIBUTION WIDTH 15.4 % (11.5-14.5); WHITE BLOOD COUNT 13.1 X10'3 (4.5-11.0)
[2023-03-30] MEDS: montelukast 10mg tablet PO SCH (07:29)
[2023-03-30] MEDS: amiodarone 200mg tablet PO SCH (07:29)
[2023-03-30] MEDS: ALISKIREN 300 MG PO SCH (07:29)
[2023-03-30] MEDS: labetalol 100mg tablet PO SCH (07:29)
[2023-03-30] MEDS: apixaban 5mg tablet PO SCH (07:29)
[2023-03-30] MEDS: levoTHYROXINE 25mcg tablet PO SCH (07:29)
[2023-03-30] MEDS: ipratropium/albuterol 3ml nebule NEB PRN (07:48)
[2023-03-30] MEDS: budesonide 0.5mg/2ml UD nebule IH SCH (07:48)
[2023-03-30] MEDS ORDERED: LABE100T8 PO (12:47)
[2023-03-30] MEDS ORDERED: HYDR-3972 PO (12:47)
[2023-03-30] MEDS ORDERED: ACET-1008 PO (12:47)
--- NOTE | 2023-03-30 12:47 | NUR ---
O2 Sat at rest on room air:__88_% If below 89%: Recovery O2 Sat at rest on _4__LPM:__92_%:___% via_nasal cannula (mask/nasal cannula, etc..) No further documentation is necessary. If O2 Sat did not drop below 89% on room air,ambulate patient on room air. O2 Sat while ambulating on room air:___% Recovery O2 Sat while ambulating on ___LPM:___% No further documentation is necessary. If patient does not drop below 89% while ambulating, he/she does not qualify for home O2.
--- NOTE | 2023-03-30 17:27 | NUR ---
Pt stable for discharge per Dr. Barton and Dr. Conte. All discharge instructions reviewed with patient and all questions answered, pt verbalized understanding. New medications e-scripted to pharmacy in [place]. PIV discontinued, cannula intact. Tele discontinued. All belongings collected and sent with patient. Wheeled to lobby via nursing staff and picked up by family.
== END 2023-03-30 16:27 | disposition home health service (06) | DRG 163 ==
LOC: ER 15:04 → ED HOLD 03-14 00:18 → EDBEDREQ 03-14 10:41 → PCU 3S 03-14 12:33 → ICU 2S 03-25 11:13 → PCU 3S 03-25 11:18 → ICU 2S 03-25 15:30 → PCU 3S 03-26 19:15 → SUR 3N 03-27 13:34 → PCU 3S 03-27 13:38
PROVIDERS: ADMIT Internal Medicine; ATTEND Family Medicine
PROC: 4A02XM4 Measurement of Cardiac Total Activity, External Approach (ICD-10-PCS; 2023-03-14)
PROC: 3E073KZ Introduction of Other Diagnostic Substance into Coronary Artery, Percutaneous Approach (ICD-10-PCS; 2023-03-14)
PROC: 5A09357 Assistance with Respiratory Ventilation, Less than 24 Consecutive Hours, Continuous Positive Airway Pressure (ICD-10-PCS; 2023-03-15)
PROC: 0W9930Z Drainage of Right Pleural Cavity with Drainage Device, Percutaneous Approach (ICD-10-PCS; 2023-03-16)
PROC: 5A09357 Assistance with Respiratory Ventilation, Less than 24 Consecutive Hours, Continuous Positive Airway Pressure (ICD-10-PCS; 2023-03-16)
PROC: 5A09357 Assistance with Respiratory Ventilation, Less than 24 Consecutive Hours, Continuous Positive Airway Pressure (ICD-10-PCS; 2023-03-17)
PROC: 0W9930Z Drainage of Right Pleural Cavity with Drainage Device, Percutaneous Approach (ICD-10-PCS; 2023-03-18)
PROC: 5A09357 Assistance with Respiratory Ventilation, Less than 24 Consecutive Hours, Continuous Positive Airway Pressure (ICD-10-PCS; 2023-03-22)
PROC: 5A09357 Assistance with Respiratory Ventilation, Less than 24 Consecutive Hours, Continuous Positive Airway Pressure (ICD-10-PCS; 2023-03-23)
PROC: 5A09357 Assistance with Respiratory Ventilation, Less than 24 Consecutive Hours, Continuous Positive Airway Pressure (ICD-10-PCS; 2023-03-24)
PROC: 0BBN4ZX Excision of Right Pleura, Percutaneous Endoscopic Approach, Diagnostic (ICD-10-PCS; 2023-03-25)
PROC: 0B5N4ZZ Destruction of Right Pleura, Percutaneous Endoscopic Approach (ICD-10-PCS; principal; 2023-03-25 12:19)
PROC: 5A09357 Assistance with Respiratory Ventilation, Less than 24 Consecutive Hours, Continuous Positive Airway Pressure (ICD-10-PCS; 2023-03-26)
PROC: 5A09357 Assistance with Respiratory Ventilation, Less than 24 Consecutive Hours, Continuous Positive Airway Pressure (ICD-10-PCS; 2023-03-29)
DX: J96.21 Acute and chronic respiratory failure with hypoxia (principal); I21.A1 Myocardial infarction type 2; I50.23 Acute on chronic systolic (congestive) heart failure; N17.0 Acute kidney failure with tubular necrosis; I13.0 Hypertensive heart and chronic kidney disease with heart failure and stage 1 through stage 4 chronic kidney disease, or unspecified chronic kidney disease; E44.0 Moderate protein-calorie malnutrition; I48.20 Chronic atrial fibrillation, unspecified; J44.1 Chronic obstructive pulmonary disease with (acute) exacerbation; J91.8 Pleural effusion in other conditions classified elsewhere; G47.33 Obstructive sleep apnea (adult) (pediatric); I25.10 Atherosclerotic heart disease of native coronary artery without angina pectoris; I27.20 Pulmonary hypertension, unspecified; N18.30 Chronic kidney disease, stage 3 unspecified; E11.22 Type 2 diabetes mellitus with diabetic chronic kidney disease; E03.9 Hypothyroidism, unspecified; E87.6 Hypokalemia; E86.0 Dehydration; Z79.84 Long term (current) use of oral hypoglycemic drugs; Z79.899 Other long term (current) drug therapy; Z79.01 Long term (current) use of anticoagulants; Z87.891 Personal history of nicotine dependence; Z88.8 Allergy status to other drugs, medicaments and biological substances; Z68.37 Body mass index [BMI] 37.0-37.9, adult
CPT/HCPCS: 32555; 32557; 93306; 99285; Z7506; Z7508; 36415; 71045; 71250; 76942; 78452; 80048; 80053; 80061; 82945; 82948; 83036; 83615; 83735; 83880; 83986; 84100; 84132; 84157; 84443; 84484; 85007; 85025; 85610; 85730; 86885; 86900; 86901; 87070; 87081; 88108; 88305; 88341; 88342; 89051; 93005; 93017; 94640; 94660; 94760; 97110; 97116; 97161; 97530; A4215; A4421; A4615; A4618; A6212; A6222; A6250; A6258; A6402; A6449; A7000; A7048; A9500; C1729; C1758; G0378; J0690; J0696; J1100; J1815; J1940; J2060; J2250; J2405; J2704; J2785; J2997; J3010; J3490; J7030; J7060; J7120

== ENCOUNTER 2023-04-13 14:44 | Outpatient (CLI) | payer OTHER, MEDICARE ==
[~2023-04-13 14:44] MED LIST changes: +ACET-1008 PO; -ALIS1TAB3 PO; +HYDR-3972 PO; +LEVO50CA4 PO; -NIFE-58 PO; +NIFE-72 PO; +[UNRECOGNIZED DRUG - CODE] PO
== END 2023-04-13 23:59 | disposition home or self-care (01) ==
LOC: RAD 14:44
PROVIDERS: ATTEND Thoracic Surgery (Cardiothoracic Vascular Surgery)
DX: J90 Pleural effusion, not elsewhere classified (principal)
CPT/HCPCS: 71046

== ENCOUNTER 2023-08-24 09:30 | Day surgery (SDC) | payer OTHER, MEDICARE ==
[~2023-08-24] VITALS: Ht 182.9 cm; Wt 120.1 kg
[2023-08-24] VITALS (11 sets, daily range): BP systolic 139–165; BP diastolic 50–70; PULSE 53–62; RESP 12–22; TEMP 97.7; O2SAT 92–95
[2023-08-24] MEDS ORDERED: LABE100T8 PO (10:15)
[2023-08-24] MEDS ORDERED: ACET-1008 PO (10:15)
[2023-08-24] MEDS ORDERED: PRED20TA PO (10:15)
[2023-08-24] MEDS ORDERED: ALBU18HF2 INH (10:15)
[2023-08-24] MEDS ORDERED: FLUT12AE4 (10:15)
[2023-08-24 10:22] LABS: BASOPHILS # (AUTO) 0.2 X10'3 (0-0.2); BASOPHILS % (AUTO) 1.4 % (0-1); EOSINOPHILS # (AUTO) 0.1 X10'3 (0-0.9); EOSINOPHILS % (AUTO) 0.8 % (0-6); HEMATOCRIT 32.2 % (42.0-52.0); HEMOGLOBIN 10.3 g/dl (14.0-17.9); LYMPHOCYTES # (AUTO) 1.9 X10'3 (1.1-4.8); LYMPHOCYTES % (AUTO) 13.5 % (21-51); MEAN CORPUSCULAR HEMOGLOBIN 26.9 PG (27.0-31.0); MEAN CORPUSCULAR HGB CONC 32.1 g/dL (33.0-36.5); MEAN CORPUSCULAR VOLUME 83.7 FL (78-98); MONOCYTES # (AUTO) 1.5 X10'3 (0-0.9); MONOCYTES % (AUTO) 10.8 % (2-12); NEUTROPHILS # (AUTO) 10.3 X10'3 (1.8-7.7); NEUTROPHILS % (AUTO) 73.5 % (42-75); PLATELET COUNT 342 X10'3 (140-440); RED BLOOD COUNT 3.85 X10'6 (4.70-6.10); RED CELL DISTRIBUTION WIDTH 16.3 % (11.5-14.5)
[2023-08-24 10:31] LABS: ANION GAP 11 (8-16); BLOOD UREA NITROGEN 32 MG/DL (7-18); BUN/CREATININE RATIO 18.5 (10.0-20.0); CALCIUM 8.5 MG/DL (8.5-10.1); CHLORIDE 103 MMOL/L (99-107); CREATININE 1.73 MG/DL (0.60-1.10); GLUCOSE 124 MG/DL (70-104); MAGNESIUM 1.9 MG/DL (1.5-2.4); POTASSIUM 3.9 MMOL/L (3.5-5.1); PROTHROMBIN TIME 10.9 SECONDS (9.0-12.0); SODIUM 140 MMOL/L (135-145); TOTAL CARBON DIOXIDE 25.8 MMOL/L (24-32); eCRCL 42 ML/MIN; eGFR 39 ML/MIN
[2023-08-24] MEDS: diphenhydrAMINE 25mg capsule PO PRN (12:08)
[2023-08-24] MEDS: sodium bicarbonate 1meq/ml syr 150 ML in dextrose 5%-water 1,000 ML IV ONE (12:08)
[2023-08-24] MEDS: normal saline 1,000 ML IV SCH (12:09)
[2023-08-24] MEDS ORDERED: LIDOcaine 1% (10mg/ml) 2ml vial ONE (13:39)
[2023-08-24] MEDS ORDERED: verapamil 2.5 mg/ml inj IV ONE (13:39)
[2023-08-24] MEDS ORDERED: iohexol 350MG/ML 100ml bottle IV ONE ×2 (13:40→14:46)
[2023-08-24] MEDS ORDERED: heparin 1,000unit/ml 10ml vial 10 ML ONE (13:40)
[2023-08-24] MEDS ORDERED: fentaNYL/PF 50MCG/1 ML 2ML syringe ONE (13:40)
[2023-08-24] MEDS ORDERED: iohexol 350 MG/ML 50ML vial IV ONE (13:40)
[2023-08-24] MEDS ORDERED: midazolam 1 mg/ML 2ml injection ONE (13:40)
[2023-08-24] MEDS ORDERED: nitroGLYCERIN 500mcg/5mL D5W 5 ML IV ONE (13:45)
[2023-08-24] MEDS ORDERED: proCHLORperazine 10 MG/2 ml inj IV PRN (15:45)
[2023-08-24] MEDS ORDERED: HYDROcodone/acetaminophen 5mg/325mg tablet PO PRN (15:45)
[2023-08-24] MEDS ORDERED: ondansetron/PF 4mg/2ml inj IV PRN (15:45)
[2023-08-24] MEDS ORDERED: HYDROcodone/acetaminophen 10/325mg tab PO PRN (15:45)
== END 2023-08-24 18:30 | disposition home or self-care (01) ==
LOC: SSTAY O 09:30
PROVIDERS: ATTEND Internal Medicine Cardiovascular Disease
DX: I25.118 Atherosclerotic heart disease of native coronary artery with other forms of angina pectoris (principal); I10 Essential (primary) hypertension; E11.9 Type 2 diabetes mellitus without complications; E03.9 Hypothyroidism, unspecified; E78.5 Hyperlipidemia, unspecified; I48.91 Unspecified atrial fibrillation; I48.0 Paroxysmal atrial fibrillation; G47.30 Sleep apnea, unspecified; J45.909 Unspecified asthma, uncomplicated; Z87.891 Personal history of nicotine dependence; Z79.01 Long term (current) use of anticoagulants; Z79.84 Long term (current) use of oral hypoglycemic drugs; Z79.890 Hormone replacement therapy; Z79.899 Other long term (current) drug therapy; Z90.89 Acquired absence of other organs; Z98.890 Other specified postprocedural states; Z88.8 Allergy status to other drugs, medicaments and biological substances
CPT/HCPCS: 36415; 80048; 83735; 85025; 85610; 92943; 93005; 93460; 99152; 99153; J1644; J2250; J3010; J3490; J7030; J7070; Q0163; Q9967; A6258; A6402; C1725; C1751; C1769; C1894; C9607

== ENCOUNTER 2024-08-31 11:52 | Emergency (ER) | payer MEDICARE, OTHER ==
[~2024-08-31] VITALS: Ht 180.3 cm; Wt 120.5 kg
[~2024-08-31 11:52] MED LIST changes: +ALBU18HF2 INH; -C-PAP; +FLUT12AE4; -FLUT12AE9 PO; -HYDR-3972 PO; -LEVO50CA4 PO; +LEVO50CA5 PO; +PRED20TA PO
--- NOTE | 2024-08-31 13:23 | Physician Documentation ---
History of Present Illness ~ Chief Complaint: Knee Pain Stated Complaint: MULTIPLE MED COMPLAINTS Time Seen by MD: 15:13 OK to notify your PCP?: Yes Primary Medical Doctor: DR SUBRAMANIAN Source: patient Mode of Arrival: POV Exam Limitations: no limitations HPI This 74-year-old male presents with left knee pain and swelling onset yesterday patient reports no recent injury to the area, patient reports he has history of knee surgeries to both knees for torn meniscus and has a history of gout. Patient reports no fever, chills, or other systemic symptoms. Patient reports he noticed no increased heat, redness or ecchymosis to the knee. Tetanus witin 5 years: No Medication Reconciliation Allergies: Coded Allergies: atorvastatin (Verified Allergy, Unknown, 03/13/23) rosuvastatin (Verified Allergy, Unknown, 03/13/23) Scheduled Aliskiren Hemifumarate (Aliskiren), 1 TAB PO DAILY, (Reported) Amiodarone Hcl (Cordarone), 0.5 TAB PO DAILY, (Reported) Apixaban (Eliquis), 1 TAB PO Q12H, (Reported) Fluticasone/Salmeterol (Advair Hfa 115-21 Mcg Inhaler), 2 PUFFS BID, (Reported) Hydrochlorothiazide (Hydrochlorothiazide), 1 TAB PO DAILY, (Reported) Labetalol Hcl (Labetalol Hcl), 1 TAB PO Q12H, (Reported) Levothyroxine Sodium (Levothyroxine), 1 TAB PO DAILY, (Reported) Metformin HCl (Metformin HCl), 1 TAB PO Q12H, (Reported) Montelukast Sodium (Singulair), 1 TAB PO DAILY, (Reported) Nifedipine (Nifedipine Er), 1 TAB PO BID, (Reported) Scheduled PRN Acetaminophen (Tylenol), 650 MG PO Q4H PRN PAIN PRN for pain, (Reported) Albuterol Sulfate (Ventolin Hfa), 2 PUFFS INH Q4H PRN for SOB or wheezing, (Reported) Ipratropium/Albuterol Sulfate (Combivent Respimat Inhal Edwards), 1 PUFFS IH QID PRN for SOB or wheezing, (Reported) Prednisone* (Prednisone*), 1 TAB PO DAILY PRN for ASTHMA, (Reported) Past Medical History Past Medical History: Atrial Fibrillation, Congestive Heart Failure, Hypertension, Asthma, COPD, Pneumonia, Sleep Apnea, Diabetes Past Surgical History: no surgical history Alcohol Use: Occasionally Drug Use: none Lives with: Spouse Lives In: Home Occupation: unemployed Physical Exam Vital Signs: Temperature: 99.1, Source: Temporal, Heart Rate: 56, Respiratory Rate: 18, BP: 184/62, Pulse Oximetry: 95, Weight: 120.450 Oxygen Flow Rate: 0 Pulse Oximetry Reflects: adequate oxygenation General Appearance: alert, no apparent distress Knees To inspection of the left knee there is an obvious large effusion. Positive balloon sign. No change in overlying skin color or temperature. No mediolatera l joint line tenderness or deformity. Patella tendon is intact. There is pain with the passive flexion-extension of the knee probably undoubtedly secondary to the pressure of the effusion. Negative Caitlin's. Negative laxity or tenderness with valgus varus stress. Procedures Procedures Left knee joint aspiration Ultrasound Procedure Note After verbal consent from the patient understood draped, prepped in sterile procedure I found my landmark on the lateral aspect of the suprapatellar effusion. I measured 1 cm lateral and proximal from the lateral curvature of the patella. I made an impression tomorrow my landmark. I then cleansed the outer skin with a Betadine swabs x3. I anesthetized the outer skin with 1% lidocaine with epinephrine. I then introduced an 18 gauge needle and drained off 100 cc of straw-colored slightly opaque fluid. The fluid was not cloudy. The fluid was sent off for joint fluid analysis. After which with a needle I covered the puncture with a Band-Aid and wrapped the knee in a knee immobilizer. The patient had immediate relief from pain and tolerated the procedure very well Progress Results/Orders Reviewed/noted all lab results: Yes Results/Orders Orders - HONG DELGADO Laceration/I&D Tray Set Up (08/31/24 15:28) Synovial Fld. Cell Ct (08/31/24 16:06) Synovial Fld Crystals (08/31/24 16:06) Synovial Fld Glucose (08/31/24 16:06) Synovial Fld Protein (08/31/24 16:06) Completed Orders - HONG DELGADO Lidocaine 1% W/Epi 1:100,000 (Xylocaine (08/31/24 15:30) Medications Received in ER Medications (Trade) Dose Ordered Sig/Solange Route PRN Reason Start Time Stop Time Status Last Admin Dose Admin (Sparks 5/325mg tablet) 1 tab ONCE ONCE PO 08/31/24 13:20 08/31/24 13:21 DC 08/31/24 15:14 1 TAB Vital Signs 08/31/24 08/31/24 08/31/24 08/31/24 12:03 14:53 15:14 15:57 Temp 99.1 99.1 Pulse 56 60 Resp 18 16 19 16 B/P (MAP) 184/62 196/69 (111) Pulse Ox 95 95 O2 Flow Rate 0 0 EKG/XRAY/CT/US/VASC/MRI Bone/Soft Tissue X-Ray (Ext.) : Interpreted By: self Additional Comment X-ray left knee three-view: Degenerative tricompartmental changes. Large joint effusion. No fracture. Medical Decision Making Findings The patient had a large left knee joint effusion. I performed arthrocentesis and aspirated 100 cc of straw-colored fluid. It was not cloudy. I sent him off for joint fluid analysis however I discharge the patient home has a have little clinical concern for infection however I told the patient I will contact him if there are any concerning findings on the fluid analysis. An Adriano wrap was placed over the knee for compression. I told the patient elevate the knee frequently and he asked for a prescription for some Sparks for pain has a patient was on Eliquis and can not take NSAIDs. Follow up with the primary care physician for recheck in the next one or two days and return to the ER for any worsening or concerning symptoms Additional Comment Left knee effusion. Left knee hemarthrosis. Septic arthritis. Gout. Pseudogout. Meniscus injury of the left knee. Ligamentous injury of the left knee. Departure Disposition: HOME / SELF CARE / HOMELESS Impression: Primary Impression: Effusion of knee Condition: Stable Discharge Instructions: Knee Effusion Additional Instructions: Use the Adriano wrap for some compression and elevate the knee frequently. Take the Sparks for strong pain you can take Tylenol for lesser pain. Follow up with the primary care physician for recheck in the next one or two days and return to the ER for any worsening or concerning symptoms Departure Forms: Excuse form Work or School Excused From: Work Excuse beginning now through the following date: Sep 04, 2024 Referrals: NO PRIMARY CARE PROVIDER (PCP) Prescriptions Hydrocodone Bit/Acetaminophen 5/325 MG (Sparks 5/325 MG) 5 Mg/325 Mg Tablet 1 TAB PO Q4H PRN for moderate or severe pain, #20 TAB Prov: HONG DELGADO 08/31/24 Signature Scribe Signature: No scribe Attestation: The note accurately reflects work and decisions made by me.Hong WALSH 08/31/24 16:17 TAJ GOMEZ Aug 31, 2024 13:23 HONG DELGADO Aug 31, 2024 16:16
--- NOTE | 2024-08-31 13:44 | RADIOLOGY REPORT ---
CLINICAL INDICATION: KNEE PAIN,left TECHNIQUE: DI KNEE, COMP 4 VW MIN Comparison: None FINDINGS/IMPRESSION: : There is no evidence of acute fracture or dislocation. Large joint effusion.
[2024-08-31] MEDS: HYDROcodone/acetaminophen 5mg/325mg tablet PO ONE (15:14)
[2024-08-31] MEDS: LIDOcaine 1% W/epiNEPHrine 1:100,000 20ml vial SQ ONE (15:57)
[2024-08-31] MEDS ORDERED: HYDR-3965 PO (16:15)
[2024-08-31 16:25] VITALS: BP 190/92; PULSE 81; RESP 16; TEMP 99.1; O2SAT 99
[2024-08-31 18:07] LABS: GLUCOSE,SYNOVIAL FLUID 88 MG/DL
[2024-08-31 18:36] LABS: APPEARANCE,SYNOVIAL FLUID CLOUDY; COLOR,SYNOVIAL FLUID YELLOW; SYN WBC 22300 /CU MM (0-200)
[2024-08-31 18:38] LABS: SYN RBC 600 /CU MM (0); SYNOVIAL FLUID CRYSTALS QT NO CRYSTALS SEEN
== END 2024-08-31 16:27 | disposition home or self-care (01) ==
LOC: ER 11:52
DX: M25.462 Effusion, left knee (principal); E11.9 Type 2 diabetes mellitus without complications; G47.30 Sleep apnea, unspecified; I11.0 Hypertensive heart disease with heart failure; I50.9 Heart failure, unspecified; I48.91 Unspecified atrial fibrillation; J44.9 Chronic obstructive pulmonary disease, unspecified; Z88.8 Allergy status to other drugs, medicaments and biological substances
CPT/HCPCS: 20610; 73564; 82945; 84157; 89051; 89060; 99284; A6449